=== PATIENT | male | born 1955 ===

== ENCOUNTER 2019-12-11 15:13 | Inpatient (IN) | payer MEDICARE, OTHER ==
[~2019-12-11] VITALS: Ht 182.9 cm; Wt 73.6 kg
--- NOTE | 2019-12-11 15:44 | NUR ---
[facility] FROM [facility], [facility], TO ER BED 6. AAOX0. NON VERBAL. NOT IN RESP DISTRESS. BED BOUND, PT WAS BROUGHT IN FOR FAILURE TO THRIVE - POOR ORAL INTAKE. MD WAS AT THE BEDSIDE FOR EVAL. ORDERS RECEIVED, NOTED AND RECEIVED. EKG AT BEDSIDE
[2019-12-11] MEDS ORDERED: ACET-868 PO (15:48)
[2019-12-11] MEDS ORDERED: DONE10TA44 PO (15:48)
[2019-12-11] MEDS ORDERED: PROP10TA68 PO (15:48)
[2019-12-11] MEDS ORDERED: NA P133E RC (15:48)
[2019-12-11] MEDS ORDERED: MEMA10TA56 PO (15:48)
[2019-12-11] MEDS ORDERED: BENA10TA74 PO (15:48)
[2019-12-11] MEDS ORDERED: MAGN400O6 PO (15:48)
[2019-12-11] MEDS ORDERED: ATOR10TA PO (15:48)
[2019-12-11] MEDS ORDERED: BISA10SU11 RC (15:48)
[2019-12-11] MEDS ORDERED: ACET-2605 PO (15:48)
--- NOTE | 2019-12-11 15:49 | NUR ---
COVID POSITIVE DONE ON NOVEMBER 13 RESULT 11/17/19, RETESTED ON NOVEMBER 29 WIT NEGATIVE RESULT ON 12/03/19
[2019-12-11] MEDS ORDERED: IV NS 0.9% 500 ML IV ONE (16:00)
--- NOTE | 2019-12-11 16:20 | NUR ---
URINE COLLECTED BY IN & OUT PER MD ORDERED. NOTED AND CARRIED OUT. STRICT STERILE TECHNIQUE OBSERVED DURING PROCEDURE.
[2019-12-11 16:34] LABS: ALANINE AMINOTRANSFERASE 31 U/L (12-78); ALBUMIN 3.6 g/dL (3.4-5.0); ALKALINE PHOSPHATASE 117 U/L (46-116); ASPARTATE AMINOTRANSFERASE 22 U/L (15-37); B-TYPE NATRIURETIC PEPTIDE 44 PG/ML (0-125); BASOPHILS # (AUTO) 0.1 /CMM (0.0-0.2); BASOPHILS % (AUTO) 0.7 % (0.0-2.0); CALCIUM, SERUM 10.4 mg/dL (8.5-10.1); CARBON DIOXIDE 29 mmol/L (21-32); CREATININE 3.3 mg/dL (0.6-1.3); EOSINOPHILS % (AUTO) 2.6 % (0.0-6.0); GLUCOSE 145 mg/dL (74-106); HEMATOCRIT 54 % (39-51); LYMPHOCYTES # (AUTO) 1.9 /CMM (0.8-4.8); LYMPHOCYTES % (AUTO) 15.8 % (20.0-44.0); MEAN CORPUSCULAR HGB CONC 32 g/dl (31.0-36.0); MEAN CORPUSCULAR VOLUME 89 fL (80-96); MONOCYTES # (AUTO) 1.1 /CMM (0.1-1.30); MONOCYTES % (AUTO) 9.1 % (2.0-12.0); NEUTROPHILS # (AUTO) 8.6 /CMM (1.8-8.9); NEUTROPHILS % (AUTO) 71.8 % (43.0-81.0); PLATELET COUNT (AUTO) 240 /CMM (150-450); POTASSIUM 4.1 mmol/L (3.5-5.1); RED BLOOD CELL COUNT(AUTO) 6.08 MIL/uL (4.5-6.0); TOTAL PROTEIN, SERUM 8.8 g/dL (6.4-8.2); UREA NITROGEN, BLOOD 67 mg/dL (7-18)
[2019-12-11 16:36] LABS: CHLORIDE 131 mmol/L (98-107); SODIUM SERUM 168 mmol/L (136-145)
[2019-12-11 16:46] LABS: APPEARANCE,URINE Cloudy (CLEAR); BILIRUBIN,URINE SMALL (NEGATIVE); BLOOD, URINE Small Ery/uL (NEGATIVE); COLOR,URINE Yellow (YELLOW); KETONES,URINE Negative (NEGATIVE); LEUKOCYTE ESTERASE ,URINE Small (NEGATIVE); NITRITE, URINE Negative (NEGATIVE); PH,URINE 5.5 (5.0-8.0); PROTEIN,URINE 30 mg/dl (NEGATIVE); UGLUCOSE Negative (NEGATIVE)
[2019-12-11 16:56] LABS: CREATINE KINASE, TOTAL 635 U/L (39-308); FERRITIN 250 ng/mL (8-388)
[2019-12-11 17:02] LABS: BACTERIA,URINE Many /HPF (None Seen); SQUAMOUS EPITHELIAL CELL,UR Few /HPF (None Seen)
[2019-12-11 17:02] LABS: C-REACTIVE PROTEIN 1.9 mg/dL (0.0-0.9)
[2019-12-11 17:03] LABS: URINE AMORPHOUS URATE Moderate /HPF (None Seen)
[2019-12-11] MEDS ORDERED: CEFTRIAXONE 2 G in IV D5W 100 ML IV ONE (17:30)
[2019-12-11] MEDS ORDERED: CEFTRIAXONE 1GM BAG (ER ONLY) 1 GM/50 ML PIGGYBACK IV ONE (17:30)
--- NOTE | 2019-12-11 17:45 | NUR ---
DOUBLE ROCEPHINE ORDER. ONE WAS CANCELLED. WANTED 2GM ROCEPHIN VIA IV. NOTED AND CARRIED OUT.
[2019-12-11 19:49] LABS: BILIRUBIN,DIRECT 0.1 mg/dL (0.0-0.2)
--- NOTE | 2019-12-11 20:17 | NUR ---
REPORT GIVEN TO JOSEPH MCGOWAN FOR SEAN
[2019-12-11 20:30] VITALS: BP 122/68
--- NOTE | 2019-12-11 20:30 | NUR ---
SUPERVISOR RIDES NOTES PT ARRIVED ON FLOOR AT 2029. PT IS NONVERBAL, WITH INVOLUNTARY JERKING MOVEMENTS. BREATHING EVEN AND UNLABORED ON 2L NC. SHOWS NO SIGNS OF ACUTE RESPIRATORY DISTRESS. NO ACUTE PAIN. IV ON L AC 20G ITS CLEAN DRY AND INTACT. SHOWS NO SIGNS OF INFILTRATION NO REDNESS. BELONGINGS CHECKLIST COMPLETE. SKIN ASSESSMENT COMPLETED. SAFETY PRECAUTIONS IN PLACE. BED IN LOWEST POSITION, LOCKED, AND CALL LIGHT KEPT WITHIN REACH. WILL CONTINUE TO MONITOR.
--- NOTE | 2019-12-11 20:37 | NUR ---
PT TRANSPORTED TO UNIT ON GURNEY WITH EMT AND RN AT BEDSIDE W/ ACLS PROTOCOL. NAD NOTED DURING TRANSPORT.
--- NOTE | 2019-12-11 20:50 | NUR ---
CORE MAN NOTES UNABLE TO DO COMPLETED INITIAL INTERVIEW, PT IS UNABLE TO RESPONDS TO QUESTIONS.
--- NOTE | 2019-12-11 22:00 | NUR ---
MATTRESS AND FOUNDATION SEWER NOTES SPOKE TO DIRECTOR SALES SUPPORT FOR DR. HONEYCUTT. RECEIVED ADMITTING ORDERS AND TO HOLD ALL MEDS UNTIL SWALLOW EVAL PER MD. WILL CONTINUE TO MONITOR.
[2019-12-11] MEDS: IV D5/0.45 NACL 1,000 ML IV PRN (22:12)
[2019-12-12] VITALS: BP 121/70
[2019-12-12 04:00] VITALS: BP 103/68
--- NOTE | 2019-12-12 06:43 | NUR ---
ADVERTISING ASSOCIATE NOTES PT IS NONVERBAL, WITH INVOLUNTARY JERKING MOVEMENTS. BREATHING EVEN AND UNLABORED ON 2L NC. SHOWS NO SIGNS OF ACUTE RESPIRATORY DISTRESS. NO ACUTE PAIN. TELE MONITOR SR/ST. IV ON L AC 20G RUNNING NS AT 75MLHR. ITS CLEAN DRY AND INTACT. SHOWS NO SIGNS OF INFILTRATION NO REDNESS. ALL DUE MEDICATIONS GIVEN. SAFETY PRECAUTIONS IN PLACE. BED IN LOWEST POSITION, LOCKED, AND CALL LIGHT KEPT WITHIN REACH. WILL ENDORSE TO ONCOMING NURSE.
--- NOTE | 2019-12-12 07:14 | NUR ---
TURBINE ENGINEER NOTES CALLED CENTRAL SUPPLY FOR DVT PUMP. WILL ENDORSE TO ONCOMING NURSE.
--- NOTE | 2019-12-12 07:30 | NUR ---
MAINFRAME PROGRAMMER OPENING NOTES PT IS NONVERBAL, WITH OCCASIONAL INVOLUNTARY JERKING MOVEMENTS. BREATHING EVEN AND UNLABORED . SHOWS NO SIGNS OF ACUTE RESPIRATORY DISTRESS. NO ACUTE PAIN. TELE MONITOR SR/ST. IV ON L AC #20G RUNNING D5 1/2 NS AT 75 ML/HR. ITS CLEAN DRY AND INTACT. SHOWS NO SIGNS OF INFILTRATION NO REDNESS. REMAIN NPO SWALLOW TEST SCHEDULE. SAFETY PRECAUTIONS IN PLACE. BED IN LOWEST POSITION, LOCKED, AND CALL LIGHT KEPT WITHIN REACH. WILL CONTINUE TO MONITOR.
[2019-12-12 08:00] VITALS: BP 138/94
[2019-12-12 09:03] LABS: ALBUMIN 3.3 g/dL (3.4-5.0); BILIRUBIN,TOTAL 0.7 mg/dL (0.2-1.0); CALCIUM, SERUM 9.6 mg/dL (8.5-10.1); CREATININE 2.8 mg/dL (0.6-1.3); POTASSIUM 3.9 mmol/L (3.5-5.1); TOTAL PROTEIN, SERUM 8.2 g/dL (6.4-8.2)
[2019-12-12 09:25] LABS: THYROID STIMULATING HORMONE 0.534 uIU/mL (0.358-3.74)
--- NOTE | 2019-12-12 11:15 | NUR ---
TELE/RN NOTE RECEIVED THE PATIENT WITH BEDSIDE REPORT FROM JOSEPH ALLEN. THE PATIENT IS BROUGHT TO THE UNIT ON BED.
--- NOTE | 2019-12-12 11:16 | NUR ---
RN NOTE THE PATIENT IS NOT ALERT OR ORIENTED. MAKES SOUNDS. RECEIVING OXYGEN AT 2L/MIN VIA NASAL CANNULA. NO MANIFESTATION OF ANY DISTRESS NOTED. LAC G 20 PATENT AND SALINE LOCKED. BED LOW AND LOCKED. SIDE RAILS UP X3. CALL LIGHT WITHIN REACH. WILL CONTINUE TO MONITOR.
[2019-12-12] MEDS: IV D5/0.45 NACL 1,000 ML IV PRN (11:37)
[2019-12-12 12:00] VITALS: BP 116/62
--- NOTE | 2019-12-12 12:07 | NUR ---
TELE/RN NOTE DR HONEYCUTT IS MADE AWARE OF THE PATIENT ABNORMAL LAB RESULTS AND RECEIVED AN ORDER TO DISCONTINUE D5 1/2 NS IV FLUID AND INSTEAD START D5W AT 75ML/HR PRN. THE ORDERS NOTED AND CARRIED OUT. ALSO, DR HONEYCUTT IS MADE AWARE THAT THE PATIENT FAILED SWALLOW EVAL AND PER MD NPO ORDER PLACED. Addendum: 12/12/19 at 1210 by DYLAN ALMONTE RN MS/RN NOTE DR HONEYCUTT IS MADE AWARE TO DO MED RECON.
[2019-12-12] MEDS: IV D5W 1,000 ML IV PRN (12:34)
[2019-12-12] MEDS ORDERED: NA PHOS,M-B/NA PHOS,DI-BA 1 EA ENEMA RC PRN (14:00)
[2019-12-12] MEDS ORDERED: BISACODYL SUPP (10 MG) 10 MG/SUPP.RECT SUPP.RECT RC PRN (14:00)
[2019-12-12] MEDS ORDERED: MAGNESIUM HYDROXIDE 30 ML UDC PO PRN (14:00)
[2019-12-12] MEDS ORDERED: ACETAMINOPHEN ES 500 MG TABLET PO PRN (14:30)
--- NOTE | 2019-12-12 15:55 | NUR ---
TELE/RN NOTE STILL WAITING FOR THE PHARMACY TO DELIVER ROCEPHIN DUE AT 1500. FOLLOW UP CALLS ARE MADE. WILL ADMINISTER THE MEDICATION SOON IT IS DELIVERED.
[2019-12-12] MEDS: CEFTRIAXONE 1 G in IV D5W 50 ML IV SCH (15:59)
[2019-12-12 16:00] VITALS: BP 112/52
[2019-12-12] MEDS: PROPRANOLOL HCL 10 MG TABLET PO SCH (16:22)
[2019-12-12] MEDS: MEMANTINE HCL 5 MG TABLET PO SCH (16:23)
--- NOTE | 2019-12-12 16:49 | NUR ---
TELE/RN NOTE COVID19 SWAB DONE PER ORDER AND TAKEN TO THE LAB.
--- NOTE | 2019-12-12 18:20 | NUR ---
TELE/RN NOTE THE PATIENT IS IN BED. NOT ALERT OR ORIENTED. THE PATIENT IN NO APPARENT DISTRESS. OXYGEN SATURATION IN ROOM AIR IS AT 95%. THE PATIENT IS IN ROOM AIR. RESPIRATION REGULAR AND UNLABORED. NO MANIFESTATION OF DISTRESS DISTRESS NOTED. EXTERNAL TELE BOX READING IS SR 96. LAC G 20 PATENT AND D5W INFUSING AT 75ML/HR AND NO S/S INFILTRATION NOTED. BED LOW AND LOCKED. SIDE RAILS UP X3. CALL LIGHT WITHIN REACH. WILL ENDORSE TO MICROELECTRONICS TECHNICIAN.
--- NOTE | 2019-12-12 19:45 | NUR ---
RN OPENING NOTE RECEIVED PATIENT IN BED RESTING ALERT ORIENTED X0 CONFUSED NON VERBAL,BREATHING IS EVEN AND UNALBORED HE IS NPO INCLUDED MEDS DUE TO FAILED SPEECH EVAL,TOMORROW SPEECH THERAPIST WILL SEE HEM.ON 4L OXYGEN VIA NASAL CANUULA O2:94%,IV SITE IS ON LEFT AC ON D5W @75 CC/HR CONTINUE TO MONITOR.
[2019-12-12 20:00] VITALS: BP 98/47
[2019-12-12] MEDS: ATORVASTATIN 10 MG TABLET PO SCH (22:00)
[2019-12-12] MEDS: DONEPEZIL 5 MG TABLET PO SCH (22:00)
--- NOTE | 2019-12-12 22:00 | NUR ---
RN NOTE ARICEP AND LIPITOR AT 2200 NOT ADMINISTERED DUE TO PATIENT IS NPO AND FAILED SPEECH EVAL TODAY,CONTINUE TO MONITOR
[2019-12-13] VITALS: BP_SYST 104; BP_SYST 85; BP_DIAS 42; BP_DIAS 65
[2019-12-13] MEDS: IV D5W 1,000 ML IV PRN ×2 (02:27→16:55)
[2019-12-13 04:00] VITALS: BP_SYST 111; BP_DIAS 3; BP_DIAS 63
--- NOTE | 2019-12-13 06:50 | NUR ---
RN CLOSING NOTE PATIENT REMAINS THE SAME CONDITION,OPEN EYES,ALERT ORIENTED X0 CONFUSED,ON 4L OXYGEN O2 96% HEART RATE 90s REMAINS NPO,ON D5W IV 75 CC/HR IV SITE IS ON L AC INTACT,HELD ALL PO MEDS DURING 7PM TO 7 AM SHIFT,KEPT CLEAN AND DRY ALL THE TIME,WILL ENDORSE TO NEXT COMING SHIFT FOR CONTINUATION OF CARE.
[2019-12-13 08:00] VITALS: BP 115/65
[2019-12-13] MEDS: PROPRANOLOL HCL 10 MG TABLET PO SCH ×2 (09:00→17:00)
[2019-12-13] MEDS: MEMANTINE HCL 5 MG TABLET PO SCH ×2 (09:00→17:00)
--- NOTE | 2019-12-13 09:15 | NUR ---
RN NOTES PER MD HONEYCUTT DAILY CHEMISTRY ORDER.
--- NOTE | 2019-12-13 09:20 | NUR ---
SPEECH THERAPIST DID ANOTHER SWALLOW EVAL,DID NOT PASS. KEEP NPO INCLUDING MEDS.
--- NOTE | 2019-12-13 10:30 | NUR ---
RN NOTES SPEECH THERAPIST SUGGESTED NG TUBE. PER MD HONEYCUTT TO HOLD OFF NG TUBE.
[2019-12-13] MEDS ORDERED: CEFTRIAXONE 1 G in IV D5W 50 ML IV SCH (11:30)
[2019-12-13 12:00] VITALS: BP 105/57
--- NOTE | 2019-12-13 12:45 | NUR ---
RN NOTES O2 ORDER PLACED. RT AWARE FOR EVAL.
[2019-12-13] MEDS: CEFTRIAXONE 1 G in IV D5W 50 ML IV SCH (14:38)
[2019-12-13 16:00] VITALS: BP 110/55
--- NOTE | 2019-12-13 19:42 | NUR ---
RN CLOSING NOTE PATIENT IN BED SLEEPING. PATIENT REMAINS IN THE SAME CONDITION,OPEN EYES, A/O X0.ON 5L OXYGEN O2 89-95% HEART RATE 86s. REMAINS NPO,ON D5W IV 75 CC/HR IV SITE IS ON L AC INTACT,HELD ALL PO MEDS DURING 7AM TO 7 PM SHIFT,KEPT CLEAN AND DRY ALL THE TIME,WILL ENDORSE TO NEXT COMING SHIFT FOR SEAN.
--- NOTE | 2019-12-13 19:45 | NUR ---
CONVEYOR LINE BATTERY CHARGER OPENING NOTES RECEIVED PATIENT RESTING IN BED COMFORTABLY; A/OX0, NONVERBAL; BREATHING EVEN AND UNLABORED; PATIENT TOLERATING SIMPLE MASK AT 5LPM; NO SOB NOTED; PER AM SHIFT, PATIENT SPO2 FLUCTUATES; IF PATIENT CONTINUES TO FLUCTUATE, CALL RT AGAIN FOR STAT ABG ORDER; WILL CONT TO MONITOR TELE MONITOR READS SINUS RHYTHM 86BPM; IV SITE INTACT, RUNNING D5W @ 75ML/HR, TOLERATING IVF WELL; NPO STATUS MAINTAINED; SAFETY PRECAUTIONS IMPLEMENTED; ISOLATION PRECAUTIONS MAINTAINED; BED LOCKED IN LOW POSITION; SIDE RAILS X2; WILL CONT TO MONITOR
[2019-12-13 20:00] VITALS: BP 112/53
[2019-12-13] MEDS: DONEPEZIL 5 MG TABLET PO SCH (22:00)
[2019-12-13] MEDS: ATORVASTATIN 10 MG TABLET PO SCH (22:00)
--- NOTE | 2019-12-13 22:00 | NUR ---
BOOK SALESMAN NOTES SCHEDULED MEDICATIONS NON-ADMINISTERED DUE TO NPO STATUS; WILL CONT TO MONITOR
--- NOTE | 2019-12-13 22:27 | NUR ---
INDUSTRIAL HYGENIST NOTES NEW SPO2 SENSOR APPLIED; PATIENT SATTING AT 98% ON 5LPM VIA SIMPLE MASK; WILL CONT TO MONITOR
[2019-12-14] VITALS (10 sets, daily range): BP systolic 93–139; BP diastolic 44–96
--- NOTE | 2019-12-14 00:38 | NUR ---
AIRCRAFT AIR CONDITIONING MECHANIC NOTES ENDORSE SEAN TO JOSEPH BACK
[2019-12-14] MEDS: IV D5W 1,000 ML IV PRN ×2 (06:25→22:58)
--- NOTE | 2019-12-14 06:54 | NUR ---
APPARATUS CLEANER OPENING NOTES PT IN BED RESTING. A/OX0, NONVERBAL; OPENS EYES. RESPIRATIONS EVEN AND UNLABORED WITH NO S/S OF ACUTE DISTRESS OR SOB NOTED. PT NOTED WITH SIMPLE FACE MASK WITH; BREATHING EVEN AND UNLABORED; WITH O2 AT 6LPM. PER PM NURSE IF PATIENT CONTINUES TO FLUCTUATE, CALL RT AGAIN FOR STAT ABG ORDER. IV SITE INTACT, INFUSING D5W @ 75ML/HR, TOLERATING IVF WELL. PT NOTED WITH NPO STATUS. SAFETY MEASURES IN PLACE WITH BED IN LOWEST LOCKED POSITION WITH SIDE RAILS UP X2. CALL LIGHT WITHIN REACH. WILL ENDORSE TO ONCOMING NURSE FOR SEAN. Addendum: 12/14/19 at 0710 by NAZANIN CROWLEY RN CLOSING NOTES
--- NOTE | 2019-12-14 07:34 | NUR ---
RN NOTES RECEIVED PATIENT IN BED RESTING COMFORTABLY IN MODERATE HIGH BACK REST. A/OX0, NONVERBAL; OPENS EYES. RESPIRATIONS EVEN AND UNLABORED WITH NO S/S OF ACUTE DISTRESS OR SOB NOTED AT THIS TIME. ON OXYGEN 8LPM VIA SIMPLE FACE MASK. IV SITE INTACT, INFUSING D5W @ 75ML/HR, TOLERATING IVF WELL. PT NOTED WITH NPO STATUS. SAFETY MEASURES IN PLACE WITH BED IN LOWEST LOCKED POSITION WITH SIDE RAILS UP X2. CALL LIGHT WITHIN REACH. WILL CONTINUE TO MONITOR.
[2019-12-14 08:13] LABS: ALBUMIN 2.9 g/dL (3.4-5.0); BILIRUBIN,TOTAL 1.2 mg/dL (0.2-1.0); CALCIUM, SERUM 9.2 mg/dL (8.5-10.1); CREATININE 2.1 mg/dL (0.6-1.3); POTASSIUM 3.9 mmol/L (3.5-5.1); TOTAL PROTEIN, SERUM 7.6 g/dL (6.4-8.2)
[2019-12-14] MEDS: MEMANTINE HCL 5 MG TABLET PO SCH ×2 (08:49→16:45)
[2019-12-14] MEDS: PROPRANOLOL HCL 10 MG TABLET PO SCH ×2 (08:49→16:45)
--- NOTE | 2019-12-14 09:00 | NUR ---
RN NOTES SCHEDULED MEDICATIONS NON-ADMINISTERED DUE TO NPO STATUS; WILL CONT TO MONITOR
[2019-12-14] MEDS ORDERED: DEXTROSE 50%-WATER 50 ML DISP.SYRIN IV PRN (14:00)
[2019-12-14] MEDS ORDERED: GLUCERNA 1.2 1,000 ML BOTTLE GT PRN (14:30)
[2019-12-14] MEDS: CEFTRIAXONE 1 G in IV D5W 50 ML IV SCH (14:35)
--- NOTE | 2019-12-14 15:15 | NUR ---
RN NOTES INSERTED NG TUBE, CHEST-XRAY DONE, AWAITING RESULT TO CONFIRM PLACEMENT. WILL CONTINUE TO MONITOR.
--- NOTE | 2019-12-14 15:46 | NUR ---
RN NOTES CHEST XRAY- NG TUBE IS NOT IN PLACE, WILL TRY TO RE-INSERT AGAIN LATER, WILL CONTINUE TO MONITOR.
[2019-12-14 16:41] LABS: ABG BASE EXCESS -5.2 mmol/L; ABG PCO2 40.2 mmHg (35.0-45.0); ABG PH 7.324 (7.350-7.450); ABG PO2 111.1 mmHg (75.0-100.0); AaDO2 272.5 mmHg; COHb 0.4 % (0.5-1.5); MetHb 0.1 % (0.0-1.5); O2Hb 97.5 % (94.0-97.0); SITE, ABG Right Brachial; VENT MODE, BG SIMPLE MASK
[2019-12-14] MEDS: BLOOD SUGAR DIAGNOSTIC 1 EACH STRIP IN SCH (17:10)
[2019-12-14] MEDS: INSULIN REGULAR, HUMAN 100 UNIT/ML 3 ML VIAL SQ PRN (17:10)
--- NOTE | 2019-12-14 17:46 | NUR ---
RN NOTES RECEIVED HAND OFF FROM VIRI RUIZ FOR SEAN
--- NOTE | 2019-12-14 17:50 | NUR ---
ICU OPENING NOTES RECEIVED PATIENT RESTING IN BED COMFORTABLY. 10L O2 FLOWING VIA FACE MASK, SATING 100%. PT CONNECTED TO BEDSIDE MONITOR. SAFETY MEASURES HAVE BEEN IMPLEMENTED, CALL LIGHT IS WITHIN REACH, BED IS IN LOWEST AND LOCKED POSITION, SIDE RAILS UP X2, WILL CONTINUE TO MONITOR FOR ANY CHANGES.
--- NOTE | 2019-12-14 19:08 | NUR ---
ICU OF RN CLOSING PT IS RESTING IN BED COMFORTABLY AT THIS TIME. PT IS RECEIVING 10L OXYGEN VIA SIMPLE FACE MASK. SAFETY MEASURES HAVE BEEN IMPLEMENTED, CALL LIGHT IS WITHIN REACH, BED IS IN LOWEST AND LOCKED POSITION, SIDE RAILS UP X2, PT HAS BEEN ENDORSED TO NIGHTSHIFT RN FOR SEAN.
--- NOTE | 2019-12-14 20:00 | NUR ---
MVA REACTOR OPERATOR NOTES PT IS RESTING IN BED .A/O X0 NON VERBAL UNABLE TO MAKE NEEDS KNOWN .ON 10L OXYGEN VIA SIMPLE FACE MASK.ON MONITOR ST -109, NO SOB NO DISTRESS NOTED SATING 89-95% V/S STABLE AFEBRILE ,PTS ON IVF OF D5W AT 75CC/HR INFUSING WELL .PTS IS NPO STATUS ALL DUE PO MEDICATION NON ADMINISTERED . SAFETY MEASURES HAVE BEEN IMPLEMENTED, CALL LIGHT IS WITHIN REACH, BED IS IN LOWEST AND LOCKED POSITION, SIDE RAILS UP X2, PER ENDORSEMENT FROM CHARLIE RUIZ PTS FOR INTERVENTIONAL RADIOLOGY TO INSERT NG TUBE ON MONDAY RN TO CALL ON MONDAY TO RADIOLOGY TEL#[phone]. WILL CONTINUE TO MONITOR PTS. PTS AWAITING COVID RESULT.
[2019-12-14] MEDS: DONEPEZIL 5 MG TABLET PO SCH (21:36)
[2019-12-14] MEDS: ATORVASTATIN 10 MG TABLET PO SCH (21:36)
--- NOTE | 2019-12-14 23:45 | NUR ---
MODEL AND DYE PERSON NOTES RECEIVED CALL FROM LAB COVID RESULT - POSITIVE , YUMIKO RUIZ AND NSG SUPERVISOR RESIDENTIAL EARNEST MADE AWARE.
[2019-12-15] VITALS (26 sets, daily range): BP systolic 80–152; BP diastolic 47–78
--- NOTE | 2019-12-15 | NUR ---
silviculture teacher notes blood sugar for 12mn is179 mg/dl 3 units of regular insulin per sliding scale , will check blood sugar again at 6am.
[2019-12-15] MEDS: INSULIN REGULAR, HUMAN 100 UNIT/ML 3 ML VIAL SQ PRN ×4 (00:18→18:21)
[2019-12-15] MEDS: BLOOD SUGAR DIAGNOSTIC 1 EACH STRIP IN SCH ×4 (00:18→18:18)
--- NOTE | 2019-12-15 03:46 | NUR ---
agriculture intern notes morning care rendered , remains on 10 liters of 02 via simple mask,will continue to monitor pts. sating 100%
--- NOTE | 2019-12-15 05:38 | NUR ---
agricultural equipment test engineer notes blood sugar for 6am 1s 177 mg/dl 3 units of regular insulin given per sliding scale. pts continue on d5w at 75cc/hr,o2 sat of 95%,will endorse to rn day shift for continuity of care.
[2019-12-15 07:17] LABS: ALBUMIN 2.9 g/dL (3.4-5.0); BILIRUBIN,TOTAL 0.9 mg/dL (0.2-1.0); CALCIUM, SERUM 9.3 mg/dL (8.5-10.1); CREATININE 1.9 mg/dL (0.6-1.3); POTASSIUM 3.9 mmol/L (3.5-5.1)
--- NOTE | 2019-12-15 08:30 | NUR ---
SHILPI RN OPENING NOTES RECEIVED PT IN BED. PT IS OBTUNDENT.ALERT AND ORIENTED X1. PT IS ON OXYGEN MASK FOR 10 L.VS WNL. PT IS NPO. WAITING FOR NG PLACEMENT ON MONDAY TO START TUBE FEEDING FOR GLUCERNA. WILL NOTIFY SECURITY LEAD NURSE TO FOLLOW UP CALL FOR NG TUBE PLACEMENT.LEFT AC FLUSHING WELL AND INTACT HAS RUNNING DW5% 75 ML/HR.BED IN LOWEST POSITION. CALL LIGHT WITHIN REACH.SAFETY MEASUREMENT ARE IMPLEMENTED. WILL CONTINUE TOO MONITOR.
[2019-12-15] MEDS: PROPRANOLOL HCL 10 MG TABLET PO SCH ×2 (08:48→17:00)
[2019-12-15] MEDS: MEMANTINE HCL 5 MG TABLET PO SCH ×2 (08:49→17:00)
--- NOTE | 2019-12-15 09:30 | NUR ---
SHILPI RN NOTES PT TEM IS RUNNING 99.4. PT IS ON NPO. IV RUNNING OF D5W OF 75 ML/HR.PUT ICE PACK AXILIARY. WILL RECHECK IN 20 MIN
[2019-12-15] MEDS: IV D5W 1,000 ML IV PRN (09:59)
--- NOTE | 2019-12-15 11:00 | NUR ---
SHILPI RN NOTES RE -CHECKED TEM IS 98.6. TEM DROPPED
--- NOTE | 2019-12-15 11:31 | NUR ---
SHILPI RN NOTES TEM IS 98.2
--- NOTE | 2019-12-15 11:55 | NUR ---
SHILPI RN NOTES WATCHING PT'S BP IT WENT FROM 80/47 TO 98/60
--- NOTE | 2019-12-15 12:10 | NUR ---
SHILPI RN NOTES PT VS WNL
[2019-12-15] MEDS: CEFTRIAXONE 1 G in IV D5W 50 ML IV SCH (15:26)
--- NOTE | 2019-12-15 18:28 | NUR ---
SHILPI RN CLOSING NOTES MO IS RESTING IN BED. PT IS NPO. PT IS ON OXYGEN MASK ON 10 ML SAT 100% ALERT AND ORIENTED X1, OBTUNDENT. NG TUBE WILL BE STARTED BY INTERVENTIONAL RADIOLOGY MONDAY MORNING [phone].PT CONDOM DIAZ IS CHANGED TO APPROPRIATE SIZE. BED IS IN THE LOWEST POSITIONED.CALL LIGHT WITHIN REACH. WILL ENDORSE TO SENIOR DESIGN ENGINEERING SPECIALIST
--- NOTE | 2019-12-15 19:30 | NUR ---
ICU OVERFLOW RN NOTES, PATIENT IN BED ON OXYGEN MASK ON 10 ML SAT 96% AT THIS TIME, NO SOB/ACUTE DISTRESS NOTED AT THIS TIME, DOESN'T FOLLOW COMMANDS, OBTUNDENT, ENDORSED THAT NG TUBE WILL BE STARTED BY INTERVENTIONAL RADIOLOGY TOMORROW MORNING, [phone], WILL FOLLOW UP IN AM, LEFT AC IV ACCESS PATENT AND INTACT AND IVF INFUSING ORDERED, PATIENT TOLERATED WELL, BED LOCKED AND LOWEST POSITION, CALL LIGHT WITHIN REACH, WILL CONTINUE TO MONITOR CLOSELY.
[2019-12-15] MEDS: DONEPEZIL 5 MG TABLET PO SCH (21:06)
[2019-12-15] MEDS: ATORVASTATIN 10 MG TABLET PO SCH (21:06)
--- NOTE | 2019-12-15 21:07 | NUR ---
ICU OVERFLOW RN NOTES, NIGHT PO MEDICATIONS NON ADMINISTERED JEFRY TO PATIENT NPO STATUS, WILL F/U IN AM WITH INTERVENTIONAL RADIOLOGY FOR NG PLACEMENT.
[2019-12-16] VITALS (23 sets, daily range): BP systolic 94–149; BP diastolic 38–99
[2019-12-16] MEDS: INSULIN REGULAR, HUMAN 100 UNIT/ML 3 ML VIAL SQ PRN ×4 (00:04→18:09)
[2019-12-16] MEDS: IV D5W 1,000 ML IV PRN ×2 (01:45→17:41)
[2019-12-16] MEDS: BLOOD SUGAR DIAGNOSTIC 1 EACH STRIP IN SCH ×4 (06:09→18:07)
--- NOTE | 2019-12-16 06:37 | NUR ---
ICU OVERFLOW RN NOTES, PATIENT IN BED, ASLEEP BUT EASILY AROUSABLE TO TACTILE STIMULI, NO SOB/ACUTE DISTRESS NOTED AT THIS TIME, CONTINUE ON SIMPLE MASK AT 10L, IV ACCESS IN LEFT HAND, PATENT AND INTACT, IVF INFUSING ORDERED, PATIENT TOLERATED WELL, NO SIGNIFICANT CHANGE IN CONDITION DURING THE NIGHT, BED LOCKED AND LOWEST POSITION, S/R OF BED ORDERED, CALL LIGHT W/I REACH, NG TUBE TO BE PLACED TODAY BY INTERVENTION RADIOLOGY, WILL ENDORSE CONTINUITY OF CARE TO ONCOMING NURSE.
--- NOTE | 2019-12-16 07:45 | NUR ---
RN OPENING NOTE: Received patient in bed and obtunded. Patient opens eyes and responds to tactile stimulus but non verbal and unable to track. Tele monitor showing sinus tachycardia @ 102 bpm, on cont o2 via simple face mask @ 10lpm with saturation noted at 100%. No SOB and not in resp. distress. Isolation precaution in place for covid-19. No pain noted on patient. IV site clean, dry, patent and intact with infusion of 75mls/hr being tolerated well. No pain noted on patient. Call light in reach. Bed locked, low and at semi-zapata's position. Side rails up x3. Safety ensured and observed. Will continue to monitor.
[2019-12-16] MEDS: PROPRANOLOL HCL 10 MG TABLET PO SCH ×2 (09:00→18:00)
[2019-12-16] MEDS: MEMANTINE HCL 5 MG TABLET PO SCH ×2 (09:00→18:00)
--- NOTE | 2019-12-16 09:13 | NUR ---
rn note: Patient still without any NGTube access. awaiting placement by Radiology. Scheduled dose of medications held.
[2019-12-16] MEDS: DEXAMETHASONE SOD PHOSPHATE 10 MG/ML VIAL IV SCH (11:25)
[2019-12-16] MEDS: HEPARIN SODIUM, PORCINE 5000 UNITS/1 ML VIAL SQ SCH ×2 (11:27→18:07)
[2019-12-16 12:31] LABS: C-REACTIVE PROTEIN 25.9 mg/dL (0.0-0.9)
[2019-12-16] MEDS: CEFTRIAXONE 1 G in IV D5W 50 ML IV SCH (14:00)
--- NOTE | 2019-12-16 17:00 | NUR ---
RN NOTE: NGT insertion done at bedside per MD orders. Chest Xray done and awaiting results. Dr. Lee informed and aware.
--- NOTE | 2019-12-16 18:00 | NUR ---
RN NOTE: CXR resulted. Advancement recommendend. NGTube advanced as adviced, CXR ordered for confirmation. 1700 due medications held.
--- NOTE | 2019-12-16 18:59 | NUR ---
RN CLOSING NOTE: Patient was seen by Dr. Lee earlier on shift via telemedicine. Dr. Guerrier made rounds earlier on shift. Patient remains in bed and obtunded. Patient opens eyes and responds to tactile stimulus but non verbal and unable to track. Tele monitor showing sinus rhythm @ 60s. on cont o2 via NC @ 6lpm with saturation noted at 94%. No SOB and not in resp. distress. Isolation precaution in place for covid-19. No pain noted on patient. IV sites clean, dry, patent and intact with infusion of 75mls/hr being tolerated well. NGTube inserted on the left nare awaiting confirmation of placement, tube feeding to start after per doctor's orders. No pain noted on patient. Call light in reach. Bed locked, low and at semi-zapata's position. Side rails up x3. Safety ensured and observed. Due applicable medications given. Treatment given as ordered. Endorsed to oncoming shift for SEAN.
[2019-12-16] MEDS ORDERED: GLUCERNA 1.2 1,000 ML BOTTLE NG PRN (19:00)
--- NOTE | 2019-12-16 19:35 | NUR ---
ICU OVERFLOW RN NOTES, PATIENT IN BED RESTING COMFORTABLE, WITH EYES CLOSED, ON NC AT 6L WITH ON OXYGEN SAT 95% AT THIS TIME, NO SOB/ACUTE DISTRESS NOTED AT THIS TIME, OBTUNDENT, AWAITING FOR XRAY TO CONFIRM PLACEMENT OF NG, PER NURSE INTERVENTIONAL RADIOLOGY STATED THAT THEY DON' T PLACE NG TUBES, SO HE DID, WILL FOLLOW UP, MIGUELANGEL MIDLINE IN PLACED WELL LEFT HAND BOTH PATENT AND INTACT, NO ABNORMALITY AT SITE, PATENT AND INTACT AND IVF INFUSING ORDERED, PATIENT TOLERATED WELL, BED LOCKED AND LOWEST POSITION, CALL LIGHT WITHIN REACH, WILL CONTINUE TO MONITOR CLOSELY.
--- NOTE | 2019-12-16 20:00 | NUR ---
ICU OVERFLOW RN NOTES, RECEIVED X-RAYS RESULTS FOR NG PLACEMENT WHICH REVEALED NG TUBE NOT IN PLACED, AND RECOMMENDED TO REMOVE THE NG, REMOVED RECOMMENDED, NO DISTRESS NOTED IN PATIENT, WILL FOLLOW UP WITH MD.
--- NOTE | 2019-12-16 20:15 | NUR ---
ICU OVERFLOW RN NOTES, CALLED INTERVENTIONAL RADIOLOGY AGAIN TO CONFIRM EITHER THEY CAN OR CANNOT PLACED NG TUBE, IN EFFECT THEY REPLIED THAT THEY DON'T DO THIS PROCEDURE.
--- NOTE | 2019-12-16 20:20 | NUR ---
ICU OVERFLOW RN NOTES, INFORMED DR HONEYCUTT THAT, AGAIN PER X-RAYS NG TUBE IS NOT IN PLACED AND RECOMMENDED TO REMOVE IT, PER MD IF WE CAN TRY ONE MORE TIME, IF NOT SUCCESSFUL, HE WILL FOLLOW UP TOMORROW WITH GI FOR POSSIBLE ENDOSCOPY, AND NG PLACEMENT.
--- NOTE | 2019-12-16 21:00 | NUR ---
ICU OVERFLOW RN NOTES, X- RAYS DONE TO CONFIRM NG PLACEMENT, AWAITING FOR RESULTS, ALL PO MEDS ON HOLD TILL PLACEMENT CONFIRM.
--- NOTE | 2019-12-16 21:30 | NUR ---
ICU OVERFLOW RN NOTES, RECEIVED RESULTS AND RECOMMENDATION TO ADVANCE THE NG TUBE 5-10 CM, ADVANCE 10ML MORE AND CALLED X-RAY FOR CONFIRMATION OF PLACEMENT.
[2019-12-16] MEDS: DONEPEZIL 5 MG TABLET PO SCH (22:00)
[2019-12-16] MEDS: ATORVASTATIN 10 MG TABLET PO SCH (22:00)
--- NOTE | 2019-12-16 22:00 | NUR ---
ICU OVERFLOW RN NOTES, PO MEDICATIONS NOT ADMINISTERED, DUE TO PATIENT NPO AND UNSUCCESSFUL NG PLACEMENT.
--- NOTE | 2019-12-16 23:00 | NUR ---
ICU OVERFLOW RN NOTES, AFTER ADVANCE 10 CM, PER X--RAY RESULTS TO ADVANCE ANOTHER 5-7 CM, NG TUBE ADVANCED ALL THE WAY TO THE LAST NUMERATION ALREADY, PER CHARGE NURSE LUIS MIGUEL HARRISON ICU CHARGE NURSE TO JUST REMOVE THE NG AND FOLLOW UP IN AM WITH MD FOR FURTHER ORDERS.
[2019-12-17] VITALS (18 sets, daily range): BP systolic 90–199; BP diastolic 45–71
[2019-12-17] MEDS: BLOOD SUGAR DIAGNOSTIC 1 EACH STRIP IN SCH ×5 (00:35→23:51)
[2019-12-17] MEDS: INSULIN REGULAR, HUMAN 100 UNIT/ML 3 ML VIAL SQ PRN ×5 (00:37→23:54)
[2019-12-17] MEDS: HEPARIN SODIUM, PORCINE 5000 UNITS/1 ML VIAL SQ SCH ×3 (01:26→18:07)
[2019-12-17 06:25] LABS: BASOPHILS % (AUTO) 0.4 % (0.0-2.0); HEMATOCRIT 38 % (39-51); HEMOGLOBIN 12.1 g/dL (13.5-17.5); LYMPHOCYTES # (AUTO) 0.6 /CMM (0.8-4.8); LYMPHOCYTES % (AUTO) 7.2 % (20.0-44.0); MEAN CORPUSCULAR HGB CONC 32 g/dl (31.0-36.0); MEAN CORPUSCULAR VOLUME 88 fL (80-96); MONOCYTES # (AUTO) 0.4 /CMM (0.1-1.30); MONOCYTES % (AUTO) 5.4 % (2.0-12.0); NEUTROPHILS # (AUTO) 6.8 /CMM (1.8-8.9); PLATELET COUNT (AUTO) 119 /CMM (150-450); RED BLOOD CELL COUNT(AUTO) 4.36 MIL/uL (4.5-6.0); WHITE BLOOD COUNT (AUTO) 7.8 K/uL (4.3-11.0)
--- NOTE | 2019-12-17 06:30 | NUR ---
ICU OVERFLOW RN NOTES, PATIENT IN BED ASLEEP BUT AROUSABLE TO TACTILE STIMULI, CONTINUE ON NC AT 6L WITH ON OXYGEN ZXQ21-107% MOSTLY THE ENTIRE SHIFT, NO SOB/ACUTE DISTRESS NOTED AT THIS TIME, NO SUCCESS FOR NG PLACEMENT, DR HONEYCUTT AWARE, HE'LL FOLLOW UP TODAY, RIGHT AC MIDLINE AND LEFT HAND PIV ACCESS BOTH PATENT AND INTACT, NO ABNORMALITY AT SITE, PATENT AND INTACT AND IVF INFUSING ORDERED, PATIENT TOLERATED WELL, CONTINUE NPO, ON ISOLATION PRECAUTIONS FOR POSITIVE COVID 19, BED LOCKED AND LOWEST POSITION, 3 S/R OF BED UP, CALL LIGHT WITHIN REACH, WILL ENDORSE CONTINUITY OF CARE TO ONCOMING NURSE.
[2019-12-17 06:44] LABS: CALCIUM, SERUM 8.8 mg/dL (8.5-10.1); CREATININE 1.6 mg/dL (0.6-1.3); POTASSIUM 3.6 mmol/L (3.5-5.1)
--- NOTE | 2019-12-17 07:22 | NUR ---
YARD ATTENDANT OPENING RECEIVED PATIENT RESTING IN BED COMFORTABLY. PT IS AOX0, NON-VERBAL, AND ON STRICT BED REST. HE IS ON 6L OF O2 VIA NC, TOLERATING WELL, 97 O2 SAT. TELE MONITOR SHOWING NSR WITH HR IN THE 80s. SKIN IS INTACT. CONDOM CATH IS PATENT AND INTACT, DRAINING CLEAR AND YELLOW URINE BY GRAVITY. IV SITE ON RAC MIDLINE AND L HAND 22 G IS PATENT AND INTACT, INFUSING D5 AT 75 ML.HR. PT CONNECTED TO BEDSIDE MONITOR FOR ICU OF. CONTACT AND DROPLET ISO HAVE BEEN IMPLEMENTED AND ENFORCED FOR COVID-19. SAFETY MEASURES HAVE BEEN IMPLEMENTED, CALL LIGHT IS WITHIN REACH, BED IS IN LOWEST AND LOCKED POSITION, SIDE RAILS UP X2, WILL CONTINUE TO MONITOR FOR ANY CHANGES.
[2019-12-17] MEDS: IV D5W 1,000 ML IV PRN ×2 (07:49→21:58)
[2019-12-17] MEDS: DEXAMETHASONE SOD PHOSPHATE 10 MG/ML VIAL IV SCH (08:16)
[2019-12-17] MEDS: PROPRANOLOL HCL 10 MG TABLET PO SCH ×2 (08:25→16:34)
[2019-12-17] MEDS: MEMANTINE HCL 5 MG TABLET PO SCH ×2 (08:26→16:35)
--- NOTE | 2019-12-17 08:39 | NUR ---
RN NOTES PT O2 SATURATION DROPPED TO MID 80'S WITH AUDIBLE GURGLING FROM SECRETIONS. DEEP SUCTIONED PT WITH YANKEUR, PT O2 SAT NOW BETWEEN 90-95%. PT IS NOW MORE COMFORTABLE, WILL CONTINUE TO MONITOR FOR ANY CHANGES.
[2019-12-17] MEDS ORDERED: Z GUARD REMEDY 2 OZ OINT TP ONE (09:00)
[2019-12-17] MEDS ORDERED: Z GUARD REMEDY 2 OZ OINT TP PRN (09:00)
--- NOTE | 2019-12-17 09:01 | NUR ---
WOUND CARE CONSULT: REVIEWED CHART AND NURSING DOCUMENTATION. CURRENT JOSE SCORE IS 11. DISCUSSED SKIN PROTECTION RECOMMENDATIONS WITH NURSING STAFF. PT IS ON CORUNNA ISOFLEX LOW AIRLOSS BED. WILL SEE PRN. IN AGREEMENT WITH PLAN OF CARE.
--- NOTE | 2019-12-17 11:24 | NUR ---
RN NOTES DR. HONEYCUTT HAS FACETIMED WITH THE PT, CONTINUE POC. NO NEW ORDERS AT THIS TIME, WILL CONTINUE TO MONITOR FOR ANY CHANGES
--- NOTE | 2019-12-17 12:21 | NUR ---
RN NOTES PT 1200 BLOOD GLUCOSE IS 156. PT HAS ORDER FOR TUBE FEEDING SLIDING SCALE Q6H HOWEVER PT IS CURRENTLY NPO, INSULIN HAS BEEN HELD. WILL CONTINUE TO MONITOR
[2019-12-17] MEDS: CEFTRIAXONE 1 G in IV D5W 50 ML IV SCH (14:22)
--- NOTE | 2019-12-17 19:14 | NUR ---
RN CLOSING NOTES PT IS RESTING IN BED COMFORTABLY, NO S/SX OF DISTRESS. NO ACUTE CHANGES OCCURRED, VITAL SIGNS ARE STABLE, PT NEEDS HAVE BEEN MET. COVID ISO HAS BEEN IMPLEMENTED AND ENFORCED. SAFETY MEASURES HAVE BEEN IMPLEMENTED, CALL LIGHT IS WITHIN REACH, BED IS IN LOWEST AND LOCKED POSITION, SIDE RIALS UP X2, PT HAS BEEN ENDORSED TO NIGHTSHIFT RN FOR SEAN.
--- NOTE | 2019-12-17 19:30 | NUR ---
DIRECTOR OF FAMILY SERVICE CENTER NOTES, PATIENT IN BED RESTING COMFORTABLE, OPENS EYES SPONTANEOUSLY, ON NC AT 6L WITH ON OXYGEN SAT > 95% AT THIS TIME, NO SOB/ACUTE DISTRESS NOTED AT THIS TIME, NO SOB/ACUTE DISTRESS NOTED AT THIS TIME, MIGUELANGEL MIDLINE IN PLACED WELL LEFT HAND BOTH PATENT AND INTACT, NO ABNORMALITY AT SITE, PATENT AND INTACT AND D5W AT 75M/HR INFUSING ORDERED, PATIENT TOLERATED WELL, PATIENT CONTINUE NPO, BED LOCKED AND LOWEST POSITION, CALL LIGHT WITHIN REACH, 2 1/2 S/S UP, WILL CONTINUE TO MONITOR CLOSELY. Addendum: 12/17/19 at 2218 by SHUKRI BARNETT RN THIS NOTE IS ENTER BY SHUKRI BARNETT RN MISTAKE I STARTED DOCUMENTING AND WAS STILL UNDER PRIOR NURSE NAME.
[2019-12-17] MEDS: INSULIN GLARGINE, 100 UNIT/ML CARTRIDGE SQ SCH (21:20)
[2019-12-17] MEDS: DONEPEZIL 5 MG TABLET PO SCH (21:20)
[2019-12-17] MEDS: ATORVASTATIN 10 MG TABLET PO SCH (21:20)
--- NOTE | 2019-12-17 22:00 | NUR ---
SHIP BOAT OR BARGE MATE NOTES PO MEDICATIONS NOT ADMINISTERED, DUE TO PATIENT NPO AT THIS TIME.
[2019-12-18] VITALS: BP 116/66
[2019-12-18] MEDS: HEPARIN SODIUM, PORCINE 5000 UNITS/1 ML VIAL SQ SCH ×3 (02:00→18:12)
--- NOTE | 2019-12-18 03:00 | NUR ---
WIRE SAW OPERATOR NOTES, PATIENT SCHEDULED FOR EGD WITH NASOGASTRIC TUBE FOR THIS MORNING, NO HEPARIN ADMINISTERED AT THIS TIME.
[2019-12-18 04:00] VITALS: BP 118/87
[2019-12-18] MEDS: BLOOD SUGAR DIAGNOSTIC 1 EACH STRIP IN SCH ×4 (05:39→23:22)
[2019-12-18] MEDS: INSULIN REGULAR, HUMAN 100 UNIT/ML 3 ML VIAL SQ PRN ×3 (05:40→23:21)
--- NOTE | 2019-12-18 06:40 | NUR ---
PRODUCTION GRAPHIC DESIGNER NOTES, PATIENT IN BED ASLEEP BUT AROUSABLE TO TACTILE STIMULI, CONTINUE ON NC AT 6L WITH ON OXYGEN SAT 94--100% THROUGHOUT THE NIGHT, NO SOB/ACUTE DISTRESS NOTED AT THIS TIME, NSR IN THR TELE MONITOR WITH HR 60S AT THIS TIME, RIGHT AC MIDLINE AND LEFT HAND PIV ACCESS BOTH PATENT AND INTACT, NO ABNORMALITY AT SITE, IVF INFUSING ORDERED, PATIENT TOLERATED WELL, CONTINUE NPO, ON ISOLATION PRECAUTIONS FOR POSITIVE COVID 19, AWAITING FOR SECOND SWAB RESULTS, SCHEDULED TO HAVE EGD WITH NG PLACEMENT TODAY, FAMILY AWARE AND INFORMED BY DR [id number], AND CONSENT GIVEN AND IN CHART, BED LOCKED AND LOWEST POSITION, 3 S/R OF BED UP, CALL LIGHT WITHIN REACH, WILL ENDORSE CONTINUITY OF CARE TO ONCOMING NURSE.
[2019-12-18 07:25] LABS: CALCIUM, SERUM 8.9 mg/dL (8.5-10.1); CREATININE 1.6 mg/dL (0.6-1.3); POTASSIUM 3.5 mmol/L (3.5-5.1)
--- NOTE | 2019-12-18 07:30 | NUR ---
RN OPENING NOTE: Received patient in bed and obtunded. Patient opens eyes and responds to tactile stimulus but only produces incomprehensible sounds and unable to track. Tele monitor showing sinus rhythm @ 70s. on cont o2 via NC @ 6lpm with saturation noted at 96%. No SOB and not in resp. distress. Isolation precaution in place for covid-19. No pain noted on patient. IV sites clean, dry, patent and intact with infusion of 75mls/hr being tolerated well. No pain noted on patient. For EGD procedure today as per schedule, consents to be verified and patient to be prepared. Patient has been NPO for the past couple of days. Call light in reach. Bed locked, low and at semi-zapata's position. Side rails up x3. Safety ensured and observed. Will continue to monitor.
[2019-12-18 08:00] VITALS: BP 102/47
[2019-12-18] MEDS: DEXAMETHASONE SOD PHOSPHATE 10 MG/ML VIAL IV SCH (08:55)
[2019-12-18] MEDS: PROPRANOLOL HCL 10 MG TABLET PO SCH ×2 (09:00→17:14)
[2019-12-18] MEDS: MEMANTINE HCL 5 MG TABLET PO SCH ×2 (09:00→17:14)
[2019-12-18] MEDS: INSULIN GLARGINE, 100 UNIT/ML CARTRIDGE SQ SCH ×2 (09:24→20:20)
--- NOTE | 2019-12-18 09:25 | NUR ---
rn note: patient was seen by Dr. Lee via tele medicine. consents obtained from Merary(sister) for upcoming procedure scheduled at 12noon. Scheduled heparin dose held d/t procedure. Patient remains NPO.
[2019-12-18] MEDS: IV D5W 1,000 ML IV PRN (09:50)
[2019-12-18 12:00] VITALS: BP 126/72
--- NOTE | 2019-12-18 13:35 | NUR ---
rn note: Patient was picked up by OR staff for procedure.
[2019-12-18] MEDS ORDERED: GLUCERNA 1.2 1,000 ML BOTTLE NG PRN (15:30)
--- NOTE | 2019-12-18 15:30 | NUR ---
RN NOTE: PAtient came back from procedure in stable condition. Successfully inserted NGT on Left nare. Informed (Sister), Lorna and Dr. Lee. Orders from Dr. Williamson and Dr. Lee noted and carried out.
[2019-12-18] MEDS: CEFTRIAXONE 1 G in IV D5W 50 ML IV SCH (15:31)
[2019-12-18 16:00] VITALS: BP_SYST 117; BP_DIAS 93; BP_DIAS 99
--- NOTE | 2019-12-18 18:14 | NUR ---
RN CLOSING NOTE: No acute changes noted on shift. Patient remains in bed and obtunded. Patient opens eyes and responds to tactile stimulus but only produces incomprehensible sounds and unable to track. Tele monitor showing sinus rhythm @ 60s. on cont o2 via face mask @ 6lpm with saturation noted at 96%. No SOB and not in resp. distress. Isolation precaution in place for covid-19. No pain noted on patient. IV sites clean, dry, patent and intact. No pain noted on patient. NGT at left nare patent and in place with Glucerna 1.2 @ 40mls/hr infusing well. Call light in reach. Bed locked, low and at semi-zapata's position. Side rails up x3. Safety ensured and observed. Due medications given. Treatment given as ordered. Will endorse to oncoming shift for SEAN.
--- NOTE | 2019-12-18 19:08 | NUR ---
RN NOTE: ENDORSED TO LUCIA Kelley RN
--- NOTE | 2019-12-18 19:38 | NUR ---
RN NOTE RECIEVED PT IN BED IN SEMI ANN'S POSITION. PT IS NON VERBAL BUT AROUSABLE TO TACTILE STIMULI. PT IS ON 6L OF O2 VIA FACE MASK. VITAL SIGNS WITHIN NORMAL LIMITS. NGT VIA LEFT NARE WITH PLACEMENT VERIFIED VIA AUSCULTATION AND ASPIRATION. CURRENTLY ON TUBE FEEDING AT 40CC/ HOUR. WILL ADVANCE RATE TOLERATED. CALL LIGHT WITHIN REACH, SAFETY MEASURES IN PLACE, WILL MONITOR PT.
[2019-12-18 20:00] VITALS: BP 100/51
[2019-12-18] MEDS: DONEPEZIL 5 MG TABLET PO SCH (21:07)
[2019-12-18] MEDS: ATORVASTATIN 10 MG TABLET PO SCH (21:07)
[2019-12-19] VITALS (7 sets, daily range): BP systolic 97–153; BP diastolic 28–96
[2019-12-19] MEDS: HEPARIN SODIUM, PORCINE 5000 UNITS/1 ML VIAL SQ SCH ×3 (01:36→17:17)
[2019-12-19] MEDS: BLOOD SUGAR DIAGNOSTIC 1 EACH STRIP IN SCH ×3 (06:03→18:01)
--- NOTE | 2019-12-19 06:24 | NUR ---
RN CLOSING NOTE NO ACUTE CHANGES OBSERVED OVERNIGHT. ABLE TO ADVANCE PT'S TUBE FEEDING (GLUCERNA 1.2) TO 55CC/HOUR TOLERATED. POSITIVE PLACEMENT OF NGT VERIFIED VIA AUSCULTATION. CALL LIGHT WITHIN REACH, SAFETY MEASURES IN PLACE, WILL ENDORSE TO MORNING RN FOR CONTINUATION OF CARE.
[2019-12-19 06:59] LABS: CALCIUM, SERUM 9.1 mg/dL (8.5-10.1); CREATININE 1.4 mg/dL (0.6-1.3); POTASSIUM 3.3 mmol/L (3.5-5.1)
--- NOTE | 2019-12-19 07:30 | NUR ---
RN OPENING NOTE RECEIVED PT IN BED. ALERT AND ORIENTED X1. PT IS ON 6 L. SAT 98-100%. PT'S TUBE FEEDING (GLUCERNA 1.2) TO 55CC/HOUR TOLERATED. POSITIVE PLACEMENT OF NGT VERIFIED VIA AUSCULTATION. CALL LIGHT WITHIN REACH, SAFETY MEASURES IN PLACE, WILL CONTINUE TO MONITOR.
[2019-12-19] MEDS: INSULIN GLARGINE, 100 UNIT/ML CARTRIDGE SQ SCH ×2 (09:00→21:41)
[2019-12-19] MEDS: PROPRANOLOL HCL 10 MG TABLET PO SCH ×2 (09:47→17:18)
[2019-12-19] MEDS: MEMANTINE HCL 5 MG TABLET PO SCH ×2 (09:47→16:22)
[2019-12-19] MEDS: DEXAMETHASONE SOD PHOSPHATE 10 MG/ML VIAL IV SCH (09:48)
[2019-12-19] MEDS ORDERED: POTASSIUM CHLORIDE 20 MEQ TAB.PRT.SR PO SCH (12:00)
[2019-12-19] MEDS: INSULIN REGULAR, HUMAN 100 UNIT/ML 3 ML VIAL SQ PRN ×2 (12:51→18:03)
[2019-12-19] MEDS: CEFTRIAXONE 1 G in IV D5W 50 ML IV SCH (15:07)
--- NOTE | 2019-12-19 18:26 | NUR ---
RN CLOSING NOTE PT IS RESTING IN BED. ALERT AND ORIENTED X1. PT IS ON 6 L. SAT 98-100%. PT'S TUBE FEEDING (GLUCERNA 1.2) TO 50CC/HOUR TOLERATED. POSITIVE PLACEMENT OF NGT VERIFIED VIA AUSCULTATION. CALL LIGHT WITHIN REACH, SAFETY MEASURES IN PLACE. ALL MEDS WERE GIVEN. WILL ENDORSE TO [facility] FOR SEAN.
--- NOTE | 2019-12-19 19:30 | NUR ---
RN OPENING NOTES client is resting in bed, A/O x1, VS wnl, client is on external telemonitor. SR, HR 89. The client is nonverbal. Client has no s/s of distress, saturating at 98 - 100% on 6L simple face mask. Client has no s/s of pain. Receiving 50cc /hr of glucerna. At this moment all needs have been rendered will continue to monitor the client. All safety mechanisms in place, Side rails x2, bed locked in lowest position, and call light within reach.
[2019-12-19] MEDS: ATORVASTATIN 10 MG TABLET PO SCH (22:35)
[2019-12-19] MEDS: DONEPEZIL 5 MG TABLET PO SCH (22:35)
[2019-12-20] VITALS: BP 113/63
[2019-12-20] MEDS: BLOOD SUGAR DIAGNOSTIC 1 EACH STRIP IN SCH ×5 (01:45→23:24)
[2019-12-20] MEDS: HEPARIN SODIUM, PORCINE 5000 UNITS/1 ML VIAL SQ SCH ×3 (02:26→17:09)
[2019-12-20 04:00] VITALS: BP 130/80
--- NOTE | 2019-12-20 06:16 | NUR ---
RN CLOSING NOTES The client remains stable with no change of condition. The client has no S/S of distress. CLient remains on 6L simple Face mask, sat 99%. The client remains nonverbal. Reduced the tube feeding to 30cc/hr due to a significant amount of secretion from productive cough, no decrease in saturation. All needs rendered at this time. SAfety mechanisms in place. Will endorse the incoming shift for SEAN.
[2019-12-20 06:46] LABS: CALCIUM, SERUM 9.1 mg/dL (8.5-10.1); CREATININE 1.4 mg/dL (0.6-1.3); POTASSIUM 3.5 mmol/L (3.5-5.1)
--- NOTE | 2019-12-20 07:56 | NUR ---
RN OPENING NOTE PT IS RESTING IN BED. ALERT AND ORIENTED X1. PT IS ON 6 L. SAT 98-100%. PT'S TUBE FEEDING (GLUCERNA 1.2) TO 50CC/HOUR TOLERATED. POSITIVE PLACEMENT OF NGT VERIFIED VIA AUSCULTATION. CALL LIGHT WITHIN REACH, SAFETY MEASURES IN PLACE. WILL CONTINUE TO MONITOR
--- NOTE | 2019-12-20 07:58 | NUR ---
[facility] RN NOTES PT SOUNDS VERY CONGESTED ORDER CHEST XRAY AND STOPPED NG TUBE FEEDING. PT HAS FEVER OF 99.0 .PUT ICE AND GAVE TYLENOL
[2019-12-20 08:00] VITALS: BP 123/61
[2019-12-20] MEDS: POTASSIUM CHLORIDE 20 MEQ POWDER PACKET GT SCH (08:15)
[2019-12-20] MEDS: DEXAMETHASONE SOD PHOSPHATE 10 MG/ML VIAL IV SCH (08:15)
[2019-12-20] MEDS: MEMANTINE HCL 5 MG TABLET PO SCH ×2 (08:16→16:46)
[2019-12-20] MEDS: PROPRANOLOL HCL 10 MG TABLET PO SCH ×2 (08:54→16:47)
[2019-12-20] MEDS: INSULIN GLARGINE, 100 UNIT/ML CARTRIDGE SQ SCH ×2 (09:00→20:59)
--- NOTE | 2019-12-20 09:40 | NUR ---
[facility] RN NOTES WILL CHECK TEM AGAIN
--- NOTE | 2019-12-20 09:40 | NUR ---
[facility] RN NOTES CALLED RT JERMAINE Mcgill FOR DEEP SUCTIONING. PT WELL TOLERATED. NOW LESS CONGESTED.
--- NOTE | 2019-12-20 09:41 | NUR ---
[facility] RN NOTES WILL HOLD LANTUS TILL 12 00 PM GLUCOSE CHECK
--- NOTE | 2019-12-20 10:49 | NUR ---
[facility] RN NOTES CHECKED TWICE BACK HIS TEM IS 97.7
[2019-12-20 12:00] VITALS: BP 128/78
[2019-12-20] MEDS: INSULIN REGULAR, HUMAN 100 UNIT/ML 3 ML VIAL SQ PRN ×3 (12:08→23:25)
--- NOTE | 2019-12-20 14:23 | NUR ---
[facility] RN NOTES PT IS VERY CONGESTED AGAIN. PUT NG TUBE FEEDING ON HOLD.CALL RT SPOKE WITH ERMA GOING TO SUCTION HIM.
--- NOTE | 2019-12-20 14:55 | NUR ---
[facility] RN NOTES PT IS CONGESTED AGAIN TURN OFF GLUCERMA CALLED RT JENNY SUCTIONED PT
--- NOTE | 2019-12-20 15:10 | NUR ---
[facility] RN NOTES THERE IS NO ROCEPHIN IN THE CASSETE. NON ADMIN REASON. TALKED TO RONAL
[2019-12-20 16:00] VITALS: BP 105/62
[2019-12-20] MEDS: CEFTRIAXONE 1 G in IV D5W 50 ML IV SCH (16:39)
--- NOTE | 2019-12-20 16:50 | NUR ---
[facility] RN NOTES DR HONEYCUTT CALLED AND ORDER REGLAN IV 6 HR
[2019-12-20] MEDS: METOCLOPRAMIDE HCL 10 MG/2 ML VIAL IV SCH ×2 (17:49→23:15)
--- NOTE | 2019-12-20 18:18 | NUR ---
RN CLOSING NOTE PT IS RESTING IN BED . ALERT AND ORIENTED X2. PT'S TUBE FEEDING (GLUCERNA 1.2) IS 30CC/HOUR TOLERATED. POSITIVE PLACEMENT OF NGT VERIFIED VIA AUSCULTATION. CALL LIGHT WITHIN REACH, SAFETY MEASURES IN PLACE, WILL ENDORSE TO NIGHTSHIFT RN FOR CONTINUATION OF CARE.
--- NOTE | 2019-12-20 19:15 | NUR ---
RECEIVED A PATIENT IN BED RESTING,ALERT ORIENTED X1 NONVERBAL,ON NGT FEEDING GLUCERNA 1.2 30CC/HR THE GOAL IS 70 CC/HR.IV SITE IS ON RIGHT AC INTACT PATENT,BREATHING IS NON LABORED NO SOB NOT ACUTE DISTRESS AT THIS TIME.HE IS ON 6L/MIN OXYGEN VIA MASK O2:98% HEAD OF BED ELEVATED FOR PREVENT ASPIRATION,CONTINUE TO MONITOR.
--- NOTE | 2019-12-20 19:20 | NUR ---
RN NOTE PATIENT ALSO HAS DIAZ CATHETER,IN PLACE INTACT URINE DRAINING YELLOW AND CLEAR,CONTINUE TO MONITOR.
[2019-12-20 20:00] VITALS: BP 116/69
[2019-12-20] MEDS: DONEPEZIL 5 MG TABLET PO SCH (21:22)
[2019-12-20] MEDS: ATORVASTATIN 10 MG TABLET PO SCH (21:23)
[2019-12-21] VITALS: BP 142/67
[2019-12-21] MEDS: HEPARIN SODIUM, PORCINE 5000 UNITS/1 ML VIAL SQ SCH ×3 (02:08→18:13)
[2019-12-21 04:00] VITALS: BP 130/73
[2019-12-21] MEDS: METOCLOPRAMIDE HCL 10 MG/2 ML VIAL IV SCH ×4 (06:07→23:33)
[2019-12-21] MEDS: BLOOD SUGAR DIAGNOSTIC 1 EACH STRIP IN SCH ×4 (06:16→23:46)
[2019-12-21] MEDS: INSULIN REGULAR, HUMAN 100 UNIT/ML 3 ML VIAL SQ PRN ×4 (06:17→23:49)
[2019-12-21 06:52] LABS: CALCIUM, SERUM 9.7 mg/dL (8.5-10.1); CREATININE 1.3 mg/dL (0.6-1.3); POTASSIUM 3.7 mmol/L (3.5-5.1)
--- NOTE | 2019-12-21 07:02 | NUR ---
RN CLOSING NOTE PATIENT REMAINS CONFUSED NONVERBAL,ON 9L/MIN VIA MASK NGT ON 30CC/HR GLUCERNA 1.2 THE GOAL WAS 70 CC/HR BUT PATIENT DIDNT REACH, ALL DUE MEDS GIVEN VIA NGT,KEPT CLEAN AND DRY ALL THE TIME,HEAD OF BED ELEVATED,IV SITE ON RIGHT AC INTACT PATENT,AND ON LEFT HAND INTACT PATENT,ON CONDOM CATHETER,ENDORSE NEXT COMING SHIFT FOR CONTINUATION OF CARE.
--- NOTE | 2019-12-21 07:10 | NUR ---
RN OPENING NOTE: Received patient in bed and obtunded. Patient opens eyes and responds to tactile stimulus but only produces incomprehensible sounds and unable to track. Tele monitor showing sinus rhythm @ 70s. on cont o2 via face mask @ 10lpm with saturation noted at 94%. No SOB and not in resp. distress. Isolation precaution in place for covid-19. No pain noted on patient. IV sites clean, dry, patent and intact. No pain noted on patient. NGTube on left nare patent and in place, feeding of Glucerna 1.2 @ 30mls/hr currently being infused. No pain noted. Bed locked, low and at semi-zapata's position. Side rails up x3. Safety ensured and observed. Will continue to monitor.
[2019-12-21 08:00] VITALS: BP 140/73
[2019-12-21] MEDS: PROPRANOLOL HCL 10 MG TABLET PO SCH ×3 (08:36→17:45)
[2019-12-21] MEDS: MEMANTINE HCL 5 MG TABLET PO SCH ×3 (08:36→17:45)
[2019-12-21] MEDS: DEXAMETHASONE SOD PHOSPHATE 10 MG/ML VIAL IV SCH (08:36)
[2019-12-21] MEDS: POTASSIUM CHLORIDE 20 MEQ POWDER PACKET GT SCH ×2 (08:36→09:00)
[2019-12-21] MEDS: INSULIN GLARGINE, 100 UNIT/ML CARTRIDGE SQ SCH ×2 (09:00→21:19)
--- NOTE | 2019-12-21 09:00 | NUR ---
RN NOTE: Patient pulled out NGTube. Not in distress and no adverse reactions noted. Patient noted to be moving increasingly and appears to be restless. Dr. Lee made aware of the situation. Awaiting response and orderers.
--- NOTE | 2019-12-21 09:55 | NUR ---
RN note: Dr. Lee acknowledged information and ordered D5W @ 75mls/hr. Noted and carried out
[2019-12-21] MEDS: IV D5W 1,000 ML IV SCH ×2 (10:31→23:31)
[2019-12-21 12:00] VITALS: BP 112/52
--- NOTE | 2019-12-21 15:00 | NUR ---
DR. HONEYCUTT EVALUATED PATIENT,MORE AWAKE MORE ALERT DR. HONEYCUTT HOLD NGT PLACEMENT FOR NOW AND WANTED TO TRY PUREED AND THIN LIQUIDS AND OBSERVE ASPIRATION PRECAUTION.
[2019-12-21] MEDS: CEFTRIAXONE 1 G in IV D5W 50 ML IV SCH (15:52)
[2019-12-21 16:00] VITALS: BP 115/55
--- NOTE | 2019-12-21 18:29 | NUR ---
RN CLOSING NOTE: Dr. Lee made rounds earlier and saw patient. Patient in bed and obtunded. Opens eyes and responds to tactile stimulus but only produces incomprehensible sounds.Tele monitor showing sinus rhythm with sinus tachycardia noted. On cont. humidified o2 via NC @ 6lpm with saturation noted at 99%. No SOB and not in resp. distress. Isolation precaution in place for covid-19. No pain noted on patient. IV site clean, dry, patent and intact with D5W running at 75mls/hr. No pain noted on patient. NGT placement on hold per Dr. Lee with intent to evaluate tolerance to current diet, Dinner consumed < 10%. informed and is aware. Bed locked, low and at semi-zapata's position. Side rails up x3. Safety ensured and observed. Due medications given. Treatment given as ordered. Will endorse to oncoming shift for SEAN.
--- NOTE | 2019-12-21 19:30 | NUR ---
RN OPENING NOTE RECEIVED PATIENT IN BED CONFUSED,OBTUNDED, OPEN EYES NONVERBAL, BREATHING IS EVEN AND UNLABORED NO SOB NOT ACUTE DISTRESS AT THIS TIME,ON 6L OXYGEN O2:96%, ON CONDOM CATHETER, URINE DRAINING YELLOW/CLEAR, IV SITE IS ON LEFT AC INTACT PATENT,ON D5W 75CC/HR,PATIENT IS ON PUREE DIET,KEEP COMFORTABLE, HEAD OF BED ELEVATED,LOCKED,IMPLEMENT SAFETY MEASURE,CONTINUE TO MONITOR
[2019-12-21 20:00] VITALS: BP 125/76
[2019-12-21] MEDS: ATORVASTATIN 10 MG TABLET PO SCH (21:41)
[2019-12-21] MEDS: DONEPEZIL 5 MG TABLET PO SCH (21:41)
[2019-12-22] VITALS: BP 101/65
[2019-12-22] MEDS: HEPARIN SODIUM, PORCINE 5000 UNITS/1 ML VIAL SQ SCH ×3 (01:57→18:19)
[2019-12-22 04:00] VITALS: BP 138/70
[2019-12-22] MEDS: BLOOD SUGAR DIAGNOSTIC 1 EACH STRIP IN SCH ×4 (05:40→23:38)
[2019-12-22] MEDS: METOCLOPRAMIDE HCL 10 MG/2 ML VIAL IV SCH ×4 (05:40→23:43)
[2019-12-22] MEDS: INSULIN REGULAR, HUMAN 100 UNIT/ML 3 ML VIAL SQ PRN ×4 (05:48→23:42)
--- NOTE | 2019-12-22 06:41 | NUR ---
RN CLOSING NOTE PATIENT REMAINS OBTUNDED CONFUSE NONVERBAL,BREATHING IS EVEN AND UNLABORED NO SOB NOT ACUTE DISTRESS NOTED,HE IMPROVED O2 REACHED 4L/MIN VIA NASAL CANNULA, O2:100%,HE TOOK ALL PO MEDS,TOLERATED WELL,ON D5W IV HYDRATION @ 75CC/HR,IV SITE ON RIGHT AC INTACT PATENT.KEPT CLEAN AND DRY,HEAD OF BED ELEVATED,CONDOM CATHETER IN PLACE URINE DRAINING WELL YELLOW AND CLEAR,ENDORSE TO NEXT COMING SHIFT FOR CONTINUATION OF CARE
--- NOTE | 2019-12-22 07:15 | NUR ---
RN OPENING NOTE Received patient asleep in bed appears calm and relaxed. On NC 4L tolerating well.. Patient is obtunded. Tele reading SR 70-80s. Patient has condom catheter in place. On IVF D5W @ 75ml/hr. Cont on pulmonary toileting with Decadron. Safety measures reinforced. Call light within reach. Bed locked and on lowest position. Will cont to monitor.
[2019-12-22 08:00] VITALS: BP_SYST 134; BP_SYST 143; BP_DIAS 69
[2019-12-22] MEDS: DEXAMETHASONE SOD PHOSPHATE 10 MG/ML VIAL IV SCH (08:11)
[2019-12-22] MEDS: MEMANTINE HCL 5 MG TABLET PO SCH ×2 (08:11→17:46)
[2019-12-22] MEDS: POTASSIUM CHLORIDE 20 MEQ POWDER PACKET GT SCH (08:11)
[2019-12-22] MEDS: PROPRANOLOL HCL 10 MG TABLET PO SCH ×2 (08:13→17:48)
[2019-12-22] MEDS: INSULIN GLARGINE, 100 UNIT/ML CARTRIDGE SQ SCH ×2 (08:14→21:00)
[2019-12-22 12:00] VITALS: BP 123/67
[2019-12-22] MEDS: IV D5W 1,000 ML IV SCH (12:13)
[2019-12-22] MEDS: CEFTRIAXONE 1 G in IV D5W 50 ML IV SCH (14:00)
[2019-12-22] MEDS ORDERED: KEY,NONCONTROL,TO KEEP IN PYXI 1 EA MC ONE (15:15)
--- NOTE | 2019-12-22 15:30 | NUR ---
PT NOT ON ORDNANCE KEEPER PUMP
[2019-12-22 16:00] VITALS: BP 135/73
--- NOTE | 2019-12-22 18:45 | NUR ---
RN CLOSING NOTE Patient in bed asleep calm and relaxed no signs of distress. Suctioned orally PRN. On NC 3L tolerating well. All due meds given. Vital signs maintained within normal limits. No signs of pain or discomfort. Safety measures reinforced. Call light within reach. Bed locked and on lowest position. Will endorse to sieve repairer nurse.
--- NOTE | 2019-12-22 19:30 | NUR ---
RN OPENING NOTE RECEIVED PATIENT IN BED RESTING OBTUNDED NONVERBAL ON OXYGEN 3L VIA NASAL CANNULA,O2:98% HR SINUS RHYTHM 60s,BREATHING IS EVEN AND NON LABORD,ON CONDOM CATHETER,URINE YELLOW AND CLEAR,CONTINUE PUREE DIET,HEAD OF BED ELEVATED AND LOCKED,IV SITE IS INTACT AND PATENT ON D5W 75CC/HR,CONTINUE TO MONITOR.
[2019-12-22 20:00] VITALS: BP 109/61
[2019-12-22] MEDS: DONEPEZIL 5 MG TABLET PO SCH (21:25)
[2019-12-22] MEDS: ATORVASTATIN 10 MG TABLET PO SCH (21:25)
[2019-12-23] VITALS: BP 130/57
[2019-12-23] MEDS: HEPARIN SODIUM, PORCINE 5000 UNITS/1 ML VIAL SQ SCH ×2 (02:29→09:38)
[2019-12-23] MEDS: IV D5W 1,000 ML IV SCH (02:30)
[2019-12-23 04:00] VITALS: BP 120/63
[2019-12-23] MEDS: BLOOD SUGAR DIAGNOSTIC 1 EACH STRIP IN SCH ×4 (05:57→23:28)
[2019-12-23] MEDS: INSULIN REGULAR, HUMAN 100 UNIT/ML 3 ML VIAL SQ PRN ×4 (05:59→23:23)
[2019-12-23] MEDS: METOCLOPRAMIDE HCL 10 MG/2 ML VIAL IV SCH ×4 (06:01→23:28)
--- NOTE | 2019-12-23 06:01 | NUR ---
RN NOTE CHECKED BLOOD SUGER AT 0600 IT WAS 123 INSULIN PER SLIDING SCALED NOT ADMINISTERED.
--- NOTE | 2019-12-23 06:59 | NUR ---
RN CLOSING NOTE PATIENT IN BED RESTING,OBTUNDED ON OXYGEN 6L/MIN,NO SOB NO PAIN NOTED,ALL DUE MEDS GIVEN MD ORDERED HE TOLERATED WELL,D5W IV HYDRATION RUNNING ON 75CC/HR KEPT IV SITE ON RIGHT AC MID LINE INTACT PATENT,CLEAN AND DRY ALL THE TIME,KEPT COMFORTABLE, ENDORSE NEXT COMING SHIFT FOR CONTINUATION OF CARE
--- NOTE | 2019-12-23 07:30 | NUR ---
RN OPENING NOTES Received PATIENT AT BED, OBTUNDED, NON VERBAL, ON NC WITH 6L OF O2, AND O2 SAT OF 97%, SKIN IS INTACT, MIDLINE RIGHT AC NOTED, INTACT AND PATENT, PATIENT IS ON TELE-MONITOR WITH READINGS SINUS RHYTHM 60'S, CONDOM CATH NOTED, DRAINING CLEAR, YELLOW URINE. SAFETY MEASURES IMPLEMENTED, BED IN LOWEST POSITION, HOB @ 35 DEGREE, SIDE RAILS UP, CALL LIGHT WITHIN REACH, WILL CONT TO MONITOR
[2019-12-23 08:00] VITALS: BP 121/65
[2019-12-23] MEDS: DEXAMETHASONE SOD PHOSPHATE 10 MG/ML VIAL IV SCH (08:44)
[2019-12-23] MEDS: MEMANTINE HCL 5 MG TABLET PO SCH ×2 (08:45→16:22)
[2019-12-23] MEDS: POTASSIUM CHLORIDE 20 MEQ POWDER PACKET GT SCH (08:45)
[2019-12-23] MEDS: PROPRANOLOL HCL 10 MG TABLET PO SCH (09:00)
--- NOTE | 2019-12-23 09:45 | NUR ---
Patient is unable to swallow, MD notified
[2019-12-23] MEDS: INSULIN GLARGINE, 100 UNIT/ML CARTRIDGE SQ SCH ×2 (09:56→21:19)
[2019-12-23 12:00] VITALS: BP 131/80
--- NOTE | 2019-12-23 12:40 | NUR ---
Patient went for PEG tube placement in OR, transferred via gurney
--- NOTE | 2019-12-23 14:00 | NUR ---
patient is back from OR, IV line intact, placed back on O2, saturation is 100% tolerating well
[2019-12-23] MEDS ORDERED: GLUCERNA 1.2 1,000 ML BOTTLE NG PRN (14:30)
--- NOTE | 2019-12-23 15:17 | NUR ---
Swabbed for covid-19 ag
[2019-12-23 16:02] VITALS: BP 108/57
--- NOTE | 2019-12-23 19:24 | NUR ---
RN CLOSING NOTES PATIENT REMAINS IN BED, SATURATING 100%, NO S/SX OF DISTRESS NOTED, COMFORT NEEDS ARE MET, SAFETY MEASURES IMPLEMENTED, BED IN LOWEST POSITION,MEDICATIONS ARE GIVEN, G-TUBE IN PLACE, INTACT, WILL ENDORSE TO PM SHIFT NURSE FOR SEAN
[2019-12-23] MEDS: IV D5W 1,000 ML IV PRN (19:29)
[2019-12-23] MEDS: GLUCERNA 1.2 1,000 ML BOTTLE NG PRN (19:29)
[2019-12-23 20:00] VITALS: BP_SYST 98; BP_DIAS 56; BP_DIAS 59
[2019-12-23] MEDS: DONEPEZIL 5 MG TABLET PO SCH (21:11)
[2019-12-23] MEDS: ATORVASTATIN 10 MG TABLET PO SCH (21:11)
[2019-12-24] VITALS: BP 98/54
[2019-12-24 04:00] VITALS: BP 116/52
[2019-12-24] MEDS: METOCLOPRAMIDE HCL 10 MG/2 ML VIAL IV SCH ×3 (05:26→17:06)
[2019-12-24] MEDS: INSULIN REGULAR, HUMAN 100 UNIT/ML 3 ML VIAL SQ PRN ×3 (05:45→17:08)
[2019-12-24] MEDS: BLOOD SUGAR DIAGNOSTIC 1 EACH STRIP IN SCH ×3 (05:46→17:11)
[2019-12-24 06:48] LABS: CALCIUM, SERUM 9.2 mg/dL (8.5-10.1); CREATININE 1.2 mg/dL (0.6-1.3); POTASSIUM 3.6 mmol/L (3.5-5.1)
--- NOTE | 2019-12-24 07:21 | NUR ---
TELE/RN OPENING NOTES RECEIVED PATIENT ON BED. PATIENT IS OBTUNDED. PATIENT IN NO APPARENT RESPIRATORY DISTRESS NOTED. NO SIGN AND SYMPTOM OF DISTRESS NOTED. PATIENT WITH TELE MONITOR IN PLACED SB 58. WILL CONTINUE TO MONITOR.
[2019-12-24 07:26] LABS: BASOPHILS % (AUTO) 0.2 % (0.0-2.0); EOSINOPHILS % (AUTO) 0.4 % (0.0-6.0); HEMATOCRIT 37 % (39-51); HEMOGLOBIN 11.5 g/dL (13.5-17.5); LYMPHOCYTES # (AUTO) 2.2 /CMM (0.8-4.8); LYMPHOCYTES % (AUTO) 15.6 % (20.0-44.0); MEAN CORPUSCULAR HGB CONC 31 g/dl (31.0-36.0); MEAN CORPUSCULAR VOLUME 90 fL (80-96); MONOCYTES # (AUTO) 0.7 /CMM (0.1-1.30); NEUTROPHILS # (AUTO) 11.1 /CMM (1.8-8.9); NEUTROPHILS % (AUTO) 78.8 % (43.0-81.0); PLATELET COUNT (AUTO) 181 /CMM (150-450); RED BLOOD CELL COUNT(AUTO) 4.12 MIL/uL (4.5-6.0); WHITE BLOOD COUNT (AUTO) 14.1 K/uL (4.3-11.0)
[2019-12-24 08:00] VITALS: BP 105/52
[2019-12-24] MEDS: DEXAMETHASONE SOD PHOSPHATE 10 MG/ML VIAL IV SCH (09:08)
[2019-12-24] MEDS: POTASSIUM CHLORIDE 20 MEQ POWDER PACKET GT SCH (09:08)
[2019-12-24] MEDS: MEMANTINE HCL 5 MG TABLET PO SCH ×2 (09:08→17:06)
[2019-12-24] MEDS: INSULIN GLARGINE, 100 UNIT/ML CARTRIDGE SQ SCH ×2 (09:34→22:10)
--- NOTE | 2019-12-24 09:50 | NUR ---
Patient transferred from [facility], reported by Nesha RUIZ.
--- NOTE | 2019-12-24 09:56 | NUR ---
TELE/RN NOTES PATIENT TRANSFERRED TO [facility] GIVE REPORT TO ISIDORO FOR SEAN.
--- NOTE | 2019-12-24 09:56 | NUR ---
TELE/RN NOTES PATIENT TRANSFER TO MS Darlin HERNANDEZ GIVE REPORT TO JAMES SHELLEY Addendum: 12/24/19 at 1056 by ANNY SANDERS RN ERROR
[2019-12-24] MEDS: IV D5W 1,000 ML IV PRN (10:26)
[2019-12-24 16:00] VITALS: BP 101/61
[2019-12-24 20:00] VITALS: BP 101/58
--- NOTE | 2019-12-24 20:00 | NUR ---
Ms/RN opening notes Received patient in bed, asleep, but arouses, can opens eyes, observe parkinson like tremors, on oxygen via nc at 4l, non verbal and obtunded require suction as needed on gtube, condom catheter placedm skin intactm on gtube feeding at a rate of 40 ml/hr, iv midline patent in right ac, with evp managing director shunt . to monitor and dflusg gtube every 6 hours, to monitor. Received endorsement from am rn for leticia. will monitor.
[2019-12-24] MEDS: DONEPEZIL 5 MG TABLET PO SCH (22:02)
[2019-12-24] MEDS: ATORVASTATIN 10 MG TABLET PO SCH (22:02)
[2019-12-25] MEDS: BLOOD SUGAR DIAGNOSTIC 1 EACH STRIP IN SCH ×3 (01:09→12:11)
[2019-12-25] MEDS: METOCLOPRAMIDE HCL 10 MG/2 ML VIAL IV SCH ×3 (01:13→12:11)
[2019-12-25] MEDS: GLUCERNA 1.2 1,000 ML BOTTLE NG PRN ×2 (03:08→03:19)
--- NOTE | 2019-12-25 05:00 | NUR ---
condom catheter placed.patient tolerated .
--- NOTE | 2019-12-25 06:45 | NUR ---
323-2 MS/RN NOTES PATIENT AWAKE, CAN OPENS EYES, REQUIRE EXTENSIVE ASSISTANCE TO KEEP SAFETY MEASURES IN PLACES, ON OXYGEN VIA NC AT 3 LITER, RESPIRATIONS EVEN AND UNLABORED, GTIBE PATENT AND WITH NO RESIDUAL, CONDOM CATHETER PLACED WITH 200 ML. NO BM, BED LOCKED, CALL LIGHTS WITHIN REACH. MONITORED AND TO ENDORSE TO AM RN FOR SEAN.
--- NOTE | 2019-12-25 07:30 | NUR ---
RN OPENING NOTES Patient in bed, obtunded,experiencing intermittent tremors episodes , patent is on NC @ 4L of O2, tolerating well, saturation is 92%.IV midline Right AC noted, patent and intact; condom cath is draining yellow urine by gravity, G-tube in place, intact, no residual noted, flushed, running Glucerna feeding @40cc/hr, tolerating well. Safety measures implemented,HOB elevated at 35 degree, bed in lowest position, call light within reach, will cont to monitor
[2019-12-25 08:00] VITALS: BP_SYST 132; BP_SYST 152; BP_DIAS 104; BP_DIAS 72
[2019-12-25] MEDS: MEMANTINE HCL 5 MG TABLET PO SCH ×2 (08:19→17:35)
[2019-12-25] MEDS: POTASSIUM CHLORIDE 20 MEQ POWDER PACKET GT SCH (08:19)
[2019-12-25 09:02] VITALS: BP 152/104
[2019-12-25] MEDS: INSULIN GLARGINE, 100 UNIT/ML CARTRIDGE SQ SCH (09:29)
[2019-12-25] MEDS: INSULIN REGULAR, HUMAN 100 UNIT/ML 3 ML VIAL SQ PRN (12:21)
[2019-12-25 16:00] VITALS: BP 106/57
--- NOTE | 2019-12-25 17:45 | NUR ---
Endorsed patient to JOSEPH Burch for SEAN
--- NOTE | 2019-12-25 19:15 | NUR ---
RN CLOSING NOTE I received the patient at 1745 report from Nannette RUIZ. Patient is obtunded, showing no signs of acute distress, stable on 4L NC. Patient has GTF Glucerna 1.2 running at 40mls/hour. G-tube flushed and patent with 5mls residual. IV line is clean and intact s/l flushing well. condemn cath noted with 400cc out. Skin assessed and patient skin remains intact. Per DAHIANA Bess, patient is to be discharged tomorrow. DC order already in. Bed is in lowest position, side rails x3 in upright position, fall safety and aspiration precautions enforced. Endorsed to primer and powder canning leader JOSEPH Vernon for SEAN. Addendum: 12/25/19 at 1920 by VALE MARCIAL RN I received the patient at 1700
--- NOTE | 2019-12-25 19:41 | NUR ---
MS RN OPENING NOTES PATIENT AWAKE IN BED; NONVERBAL, OBTUNDED, AND IS ABLE TO OPEN EYES ONLY. ON 2L NC. NO S/S OF ACUTE RESPIRATORY DISTRESS; BREATHING IS EVEN AND UNLABORED. NO S/S OF PAIN NOTED. MIDLINE PRESENT ON RIGHT UPPER ARM, HEP LOCKED. CONDOM CATH IN PLACE AND DRAINING WELL. GTUBE FEEDING WITH GLUCERNA RUNNING AT 40 ML/HR; TOLERATING WELL. SAFETY MEASURES IN PLACE AND PATIENT'S NEEDS MET. BED LOCKED, ALARM ON, SIDE RAILS X3, HOB ELEVATED, CALL LIGHT WITHIN REACH. WILL CONTINUE TO MONITOR.
[2019-12-25 20:00] VITALS: BP 153/72
[2019-12-25] MEDS: DONEPEZIL 5 MG TABLET PO SCH (21:56)
[2019-12-25] MEDS: ATORVASTATIN 10 MG TABLET PO SCH (21:56)
[2019-12-26] MEDS: GLUCERNA 1.2 1,000 ML BOTTLE NG PRN (04:12)
--- NOTE | 2019-12-26 06:53 | NUR ---
MS RN CLOSING NOTES PATIENT SLEEPING, NONVERBAL, OBTUNDED, AND IS ABLE TO OPEN EYES ONLY. ON 2L NC. NO S/S OF ACUTE RESPIRATORY DISTRESS AND NO PAIN NOTED. MIDLINE PRESENT ON RIGHT UPPER ARM, HEP LOCKED. CONDOM CATH REMAINS IN PLACE; 600 ML EMPTIED. GTUBE FEEDING WITH GLUCERNA RUNNING AT 40 ML/HR; TOLERATING WELL. SAFETY MEASURES IN PLACE AND PATIENT'S NEEDS MET. BED LOCKED, ALARM ON, SIDE RAILS X3, HOB ELEVATED, CALL LIGHT WITHIN REACH. WILL ENDORSE TO DAY SHIFT RN PLAN OF CARE.
--- NOTE | 2019-12-26 07:30 | NUR ---
MS/RN OPENING NOTES Patient in bed, awake, obtunded, and non-verbal. Responsive to tactile and verbal stimulation by eye opening and moaning. Breathing even and non-labored on 2L via NC. No SOB or respiratory distress noted. No cardiac distress noted. Midline access located on MIGUELANGEL, saline locked, patent and intact, and flushing well. G-tube in place, clean, patent, and intact, running Glucerna 1.2 @ 40 mls/hr. 5 cc of gastric residual noted, patient tolerating diet well. Condom catheter in place, draining clear yellow urine well. Fall precautions maintained. Will continue with current medical management. Addendum: 12/26/19 at 0801 by MELISSA WILD RN Sensation from all peripheral extremities intact.
[2019-12-26 08:00] VITALS: BP 160/80
[2019-12-26] MEDS: MEMANTINE HCL 5 MG TABLET PO SCH (08:24)
--- NOTE | 2019-12-26 16:00 | NUR ---
MS/RN NOTES Spoke with Dr. Lee regarding discharge medications, states that atorvastatin 10 mg per G-tube at bedtime, benazepril 10 mg G-tube daily, and memantine 10 mg G-tube twice a day are the "only medications he will take when he gets admitted to SNF." Endorsed to Juliana at [facility].
--- NOTE | 2019-12-26 16:45 | NUR ---
MS/RN OPENING NOTES Patient picked up by ambulance at 1645, awake, obtunded, and non-verbal. Responsive to tactile and verbal stimulation by eye opening and moaning. No s/s of pain/discomfort at this time. Breathing even and non-labored on 2L via NC. No SOB or respiratory distress noted. No cardiac distress noted. Midline access removed with catheter intact, no infiltration/bleeding/infection noted on the site. G-tube and abdominal binder in place, clean, patent, and intact. 5 cc of gastric residual noted. No new skin impairments noted. Skin is intact upon discharge. Sensation from all peripheral extremities in place. Gave report to Juliana from [facility], discussed discharge instructions and plan of care. She verbalized understanding, offered our unit number for any questions or concerns regarding patient. No belongings noted on list and signed. Patient left facility safely along with hospital documentations and discharge instructions.
--- NOTE | 2019-12-26 17:20 | NUR ---
CORRECTION: MS/WOODS OVERSEER NOTES BELOW
== END 2019-12-26 17:00 | DRG 177 ==
LOC: ER 15:24 → TELE 20:16 → TELE2 12-12 10:39 → TELE1 12-12 10:41 → ICUOV 12-14 16:51 → TELE1 12-17 15:32 → MED 12-24 09:47
PROVIDERS: ADMIT Internal Medicine; ATTEND Internal Medicine
PROC: 05H533Z Insertion of Infusion Device into Right Subclavian Vein, Percutaneous Approach (ICD-10-PCS; 2019-12-16)
PROC: B546ZZA Ultrasonography of Right Subclavian Vein, Guidance (ICD-10-PCS; 2019-12-16)
PROC: 0DH683Z Insertion of Infusion Device into Stomach, Via Natural or Artificial Opening Endoscopic (ICD-10-PCS; principal; 2019-12-18)
PROC: 0DH63UZ Insertion of Feeding Device into Stomach, Percutaneous Approach (ICD-10-PCS; 2019-12-23)
DX: U07.1 COVID-19 (principal); J12.89 Other viral pneumonia; G93.41 Metabolic encephalopathy; N17.0 Acute kidney failure with tubular necrosis; J96.90 Respiratory failure, unspecified, unspecified whether with hypoxia or hypercapnia; N39.0 Urinary tract infection, site not specified; E87.0 Hyperosmolality and hypernatremia; E46 Unspecified protein-calorie malnutrition; R64 Cachexia; G91.2 (Idiopathic) normal pressure hydrocephalus; E86.0 Dehydration; D63.8 Anemia in other chronic diseases classified elsewhere; G30.9 Alzheimer's disease, unspecified; F02.80 Dementia in other diseases classified elsewhere, unspecified severity, without behavioral disturbance, psychotic disturbance, mood disturbance, and anxiety; K44.9 Diaphragmatic hernia without obstruction or gangrene; K31.84 Gastroparesis; K29.70 Gastritis, unspecified, without bleeding; E11.43 Type 2 diabetes mellitus with diabetic autonomic (poly)neuropathy; B96.1 Klebsiella pneumoniae [K. pneumoniae] as the cause of diseases classified elsewhere; E87.6 Hypokalemia; R13.10 Dysphagia, unspecified; Z79.4 Long term (current) use of insulin; Z68.22 Body mass index [BMI] 22.0-22.9, adult; E87.8 Other disorders of electrolyte and fluid balance, not elsewhere classified; N40.1 Benign prostatic hyperplasia with lower urinary tract symptoms; Z98.2 Presence of cerebrospinal fluid drainage device; I10 Essential (primary) hypertension
CPT/HCPCS: 31720; 36415; 36600; 43246; 71045-TC; 76770-TC; 80048-TC; 80053-TC; 80061-TC; 81000-TC; 82140-TC; 82248-TC; 82550-TC; 82553; 82728-TC; 82962-TC; 83605-TC; 83615-TC; 83880; 84443-TC; 84484-TC; 85025-TC; 85378-TC; 85730-TC; 86140-TC; 86850-TC; 87040-TC; 87081-TC; 87086-TC; 87186-TC; 92526; 92611-TC; 94799-TC; A4349; G0378; J0330; J0690; J0696; J1100; J1644; J1815; J2704; J2765; J3490; J7040; J7042; J7050; J7060; J7070; U0003-CS

== ENCOUNTER 2020-12-20 23:40 | Inpatient (IN) | payer MEDICARE, OTHER ==
[~2020-12-20] VITALS: Ht 182.9 cm; Wt 65.3 kg
[~2020-12-20 23:40] MED LIST: ACET-2605 PO; ACET-868 PO; ATOR10TA PO; BISA10SU11 RC; DONE10TA44 PO; MAGN400O6 PO; MEMA10TA56 PO; NA P133E RC; PROP10TA68 PO
--- NOTE | 2020-12-20 23:48 | NUR ---
PATIENT TO ER BED 8 [facility]. PATIENT SATURATED AT MID 70's ACCORDING TO THE RA. PATIENT WAS GIVEN NONREBREATHER AT 15L WITH OXYGEN SATURATION AT LOW 90s cONNECTED TO THE CADIAC MONITOR. WILL CONTINUE TO MONITOR THE PATIENT CLOSELY.
--- NOTE | 2020-12-20 23:58 | NUR ---
Patient is given Etomidate 40mg, and Succinylcholine 150mg Per MD's order
[2020-12-21] VITALS (82 sets, daily range): BP systolic 72–136; BP diastolic 49–80
--- NOTE | 2020-12-21 | NUR ---
PATIENT IS INTUB ATED WITH SIZE 7.5 23CM@ LIP ASSIST CONTROL 18, 500TV, AND 5 PEEP
--- NOTE | 2020-12-21 00:07 | NUR ---
IWONA GREGORY AT [facility], PT VACCINATED WITH MODERNA. FIRST DOSE Jun AND SECOND DOSE Jul
[2020-12-21] MEDS ORDERED: PROPOFOL 100 ML ONE (00:15)
--- NOTE | 2020-12-21 00:26 | NUR ---
RT pt found on nrb, 15 l, sat low 80s. pt intubated per md order. ett size 7.5, intubated 23@lip. vent settings AC 16 500 100% +5. vent plugged in to red outlet. ambu bag at [facility]. lung sounds course and expiratory wheeze throughout. thick yellow secretions suctioned via ett. sputum sample collected and sent to lab. abg to be performed. will continue to monitor
[2020-12-21] MEDS ORDERED: LIDOCAINE 2% JEL UROJET 10 ML MM ONE (00:30)
[2020-12-21] MEDS ORDERED: ETOMIDATE 2 MG/ML VIAL IV ONE ×2 (00:30→09:11)
[2020-12-21] MEDS ORDERED: IV NS 0.9% 1,000 ML BAG IV ONE (00:30)
[2020-12-21] MEDS ORDERED: SUCCINYLCHOLINE CHLORIDE 20 MG/ML VIAL IV ONE (00:30)
[2020-12-21] MEDS ORDERED: VANCOMYCIN 1 GM in IV D5W 250 ML IV ONE (00:30)
[2020-12-21] MEDS ORDERED: PIPERACILLIN /TAZOBACTAM 3.375 G in IV D5W 50 ML IV ONE (00:30)
[2020-12-21] MEDS ORDERED: CEFTRIAXONE 1GM BAG (ER ONLY) 50 ML IV ONE ×2 (00:30→00:43)
[2020-12-21] MEDS ORDERED: PROPOFOL 100 ML IV ONE (00:30)
[2020-12-21 00:32] LABS: BILIRUBIN,URINE Negative (NEGATIVE); COLOR,URINE YELLOW (YELLOW); LEUKOCYTE ESTERASE ,URINE Negative (NEGATIVE); NITRITE, URINE Negative (NEGATIVE); PH,URINE 5.5 (5.0-8.0); PROTEIN,URINE 100 mg/dl (NEGATIVE); UGLUCOSE Negative (NEGATIVE); UROBILINOGEN,URINE 0.2 EU/dL (0.2)
[2020-12-21 00:33] LABS: BASOPHILS % (AUTO) 0.6 % (0.0-2.0); EOSINOPHILS % (AUTO) 0.2 % (0.0-6.0); HEMATOCRIT 46 % (39-51); HEMOGLOBIN 14.5 g/dL (13.5-17.5); LYMPHOCYTES # (AUTO) 1.8 K/uL (0.8-4.8); MEAN CORPUSCULAR HGB CONC 32 g/dl (31.0-36.0); MEAN CORPUSCULAR VOLUME 91 fL (80-96); MONOCYTES # (AUTO) 0.8 K/uL (0.1-1.30); MONOCYTES % (AUTO) 10.6 % (2.0-12.0); NEUTROPHILS # (AUTO) 5.1 K/uL (1.8-8.9); NEUTROPHILS % (AUTO) 65.6 % (43.0-81.0); PLATELET COUNT (AUTO) 118 K/uL (150-450); RED BLOOD CELL COUNT(AUTO) 5.01 MIL/uL (4.5-6.0); WHITE BLOOD COUNT (AUTO) 7.7 K/uL (4.3-11.0)
[2020-12-21] MEDS ORDERED: VANCOMYCIN 1 GM VIAL ONE (00:43)
[2020-12-21] MEDS ORDERED: PIPERACILLIN /TAZOBACTAM 3.375 G VIAL IV ONE (00:43)
[2020-12-21 01:12] LABS: ALANINE AMINOTRANSFERASE 86 U/L (12-78); ALBUMIN 3.4 g/dL (3.4-5.0); ALKALINE PHOSPHATASE 86 U/L (46-116); ASPARTATE AMINOTRANSFERASE 29 U/L (15-37); BILIRUBIN,DIRECT 0.1 mg/dL (0.0-0.2); BILIRUBIN,TOTAL 0.7 mg/dL (0.2-1.0); CARBON DIOXIDE 32 mmol/L (21-32); CREATININE 1.6 mg/dL (0.6-1.3); GLUCOSE 162 mg/dL (74-106); TOTAL PROTEIN, SERUM 8.4 g/dL (6.4-8.2); UREA NITROGEN, BLOOD 40 mg/dL (7-18)
[2020-12-21 01:13] LABS: CHLORIDE 127 mmol/L (98-107)
[2020-12-21 01:15] LABS: SODIUM SERUM 168 mmol/L (136-145)
--- NOTE | 2020-12-21 01:15 | NUR ---
per lab sodium 168, chloride 127, lactic acid 3.1
[2020-12-21 01:19] LABS: BACTERIA,URINE None seen /HPF (None Seen); MUCUS,URINE Few /LPF (None Seen); SQUAMOUS EPITHELIAL CELL,UR Few /HPF (None Seen)
[2020-12-21 01:22] LABS: ABG BASE EXCESS -0.4 mmol/L; ABG OXYGEN SATURATION 99.1 % (92.0-98.5); ABG PCO2 40.2 mmHg (35.0-45.0); ABG PH 7.399 (7.350-7.450); ABG PO2 294.9 mmHg (75.0-100.0); AaDO2 377.9 mmHg; COHb 0.3 % (0.5-1.5); MetHb 0.4 % (0.0-1.5); O2Hb 98.4 % (94.0-97.0); SITE, ABG Left Radial; VENT MODE, BG AC 16 500 100% +5
[2020-12-21 01:42] LABS: BAND % (MANUAL) 14 % (0.0-5.0); BASOPHILS % (MANUAL) 0 % (0.0-2.0); EOSINOPHILS % (MANUAL) 1 % (0-4); LYMPHOCYTES % (MANUAL) 27 % (16-48); MONOCYTES % (MANUAL) 8 % (0-11.0); NEUTROPHILS % (MANUAL) 50 (42-76)
[2020-12-21] MEDS ORDERED: FAMO20TA8 GT (01:54)
[2020-12-21] MEDS ORDERED: HYDR-4075 PO (01:54)
[2020-12-21] MEDS ORDERED: POTA20TA83 GT (01:54)
[2020-12-21] MEDS ORDERED: SENN-261 GT (01:54)
--- NOTE | 2020-12-21 01:58 | NUR ---
REPORT GIVEN TO NAGA RUIZ FOR SEAN.
[2020-12-21] MEDS: PROPOFOL 100 ML IV PRN ×5 (02:20→23:47)
--- NOTE | 2020-12-21 02:20 | NUR ---
TRANSITION COACH RCD PT FROM ER ON PROPOFOL @ 25 MCG/KG/MIN WELL BLSW RESTRAINTS. PT WITH DIAZ CATHETER DRAINING YELLOW URINE. SKIN INTACT.
[2020-12-21] MEDS ORDERED: IV D5W 1,000 ML IV PRN (02:30)
[2020-12-21] MEDS ORDERED: NOREPINEPHRINE 8MG/250ML RTU 250 ML IV ONE (04:40)
[2020-12-21] MEDS: NOREPINEPHRINE 8 MG in IV NS 0.9% 242 ML IV PRN (04:44)
--- NOTE | 2020-12-21 06:00 | NUR ---
ELECTRICAL CAD TECHNICIAN PT ADEQUATELY SEDATED PROPOFOL DECREASED TO 20 MCG/KG/MIN PER PROTOCOL
--- NOTE | 2020-12-21 06:30 | NUR ---
DIRECTOR OF TEACHER EDUCATION PT ADEQUATELY SEDATED PROPOFOL DECREASED TO 15 MCG/KG/MIN PER PROTOCOL
--- NOTE | 2020-12-21 07:52 | NUR ---
RT Pt received orally intubated on mechanical ventilation with noted settings. Vent is plugged into red outlet with BVM by bedside. No SOB or respiratory distress noted. Plan is to continue with current respiratory care orders. Addendum: 12/21/20 at 1710 by SHOLA BATES RT Amended: Links added.
--- NOTE | 2020-12-21 08:00 | NUR ---
RN NOTES SEEN PATIENT TELEHEALTH VIA HOSPITALIST Dr HONEYCUTT, NO DVT PUMP ON PATIENT PER MD ORDER, CONTINUED HYDRATION D5W@75ML/HR BECAUSE OF NA-160. PATIENT ETT/MECHANICAL VENT, FIO2-50, TV-450,PEEP-5. WAS MILD AGITATED TITRATED DIPRIVAN 20MCG/KG/HR.NO SEDATION VACATION BECAUSE OF INCREASED SEDATION. PER Dr STRAUSS. GT- CLAMPED, KEEP HOB ELEVATED FOR ASPIRATION PRECAUTION. ASSIST TURN AND REPOSTION Q 2 HR. DIAZ DRAINING VIA GRAVITY. WILL FOLLOW UP.
[2020-12-21] MEDS: ENOXAPARIN SODIUM 30 MG/0.3 ML DISP.SYRIN SQ SCH (09:10)
[2020-12-21] MEDS ORDERED: SUCCINYLCHOLINE CHLORIDE 20 MG/ML VIAL IJ ONE (09:11)
[2020-12-21 10:54] LABS: CALCIUM, SERUM 8.7 mg/dL (8.5-10.1); CREATININE 1.4 mg/dL (0.6-1.3); POTASSIUM 3.2 mmol/L (3.5-5.1)
[2020-12-21] MEDS: POTASSIUM CL. PREMIX PERIPHER. 50 ML IV SCH ×4 (11:59→15:00)
--- NOTE | 2020-12-21 11:59 | NUR ---
RN NOTES STARTED KCL INFUSION AT THIS TIME PER LEVEL OF 3.2 MEQ ON RIGHT EJV INTACT. ALSO GET HOSPITALIST ORDER LIPITOR 10MG CONTINUED HS VIA GT. ASSIST TURN AND REPOSTION Q 2 HR. WILL MONITORING.
--- NOTE | 2020-12-21 15:00 | NUR ---
RN NOTES PATIENT MILD AGITATED TITRATED DIPRIVAN 25MCG/KG/HR, ASSIST TURN A D REPOSITION Q 2 HR.
[2020-12-21] MEDS: Potassium Chloride 20 MEQ in IV D5W 1,000 ML IV SCH (17:32)
--- NOTE | 2020-12-21 18:27 | NUR ---
RN NOTES PM CARE DONE, SUCTION, DUE MEDICATION ADMINISTERED. INFUSING D5W WITH 20MEQ OF KCL @ 75 ML/HR, AND DIPRIVAN 25MCG/KG/HR ON RIGHT HAND INTACT. ASSIST TURN AND REPOSTION Q 2 HR. GT CLAMPED. DIAZ DRAINING VIA GRAVITY RADISH OUTPUT. RECHECKED CIRCULATION OF BILATERAL RESTRAIN. ENDORSED ONCOMING NURSE SEAN.
--- NOTE | 2020-12-21 19:45 | NUR ---
ICU/MINING ENGINEERING TECHNOLOGIST RECEIVED REPORT FROM DAY NURSE. SEE FLOWSHEET FOR ASSESSMENT. THE IV'S AND SEDATION IS ADDRESSED ON THE IV SPREAD SHEET ALONG WITH TITRATIONS.THIS PT IS TOLERATED THE VENT SETTINGS WITH SATURATION AT 100%. PT WAS TURNED AND REPOSITIONED FOR COMFORT AND CARE. NO ACUTE DISTRESS SEEN AT THIS TIME WILL CONTINUE MONITOR THIS PT
[2020-12-21] MEDS: ATORVASTATIN 10 MG TABLET GT SCH (21:49)
--- NOTE | 2020-12-21 22:15 | NUR ---
ICU/ASSEMBLER TRACTOR PT WAS GIVEN ORAL CARE, ALONG WITH PM CARE AT THIS TIME. PT TOLERATED THIS WELL, PT REMAINS ON CURRENT VENT SETTINGS WITH SATURATION AT 100%. PT WAS TURNED AND REPOSITIONED FOR COMFORT AND CARE. WILL CONTINUE TO MONITOR THIS PT. NO ACUTE DISTRESS SEEN AT THIS TIME.
--- NOTE | 2020-12-21 23:24 | NUR ---
ICU/BINDING END STITCHER COVID NEGATIVE, PER LAB 12/21/20 PER MATILDA.
[2020-12-21] MEDS: CEFTRIAXONE 1 G in IV D5W 50 ML IV SCH (23:46)
[2020-12-22] VITALS (41 sets, daily range): BP systolic 59–154; BP diastolic 34–118
--- NOTE | 2020-12-22 01:36 | NUR ---
PARTNER MANAGEMENT CONSULTANT. LAB CALLED FOR BLOOD CULTURE PRELIMINARY RESULT IS GRAM POSITIVE COCCI IN CLUSTERS. PAGED MD HONEYCUTT. WAITING FOR CALL BACK.
--- NOTE | 2020-12-22 02:40 | NUR ---
ICU/BEAMER HELPER PT WAS GIVEN ORAL CARE, ALONG WITH PM CARE AT THIS TIME. PT TOLERATED THIS WELL, PT REMAINS ON CURRENT VENT SETTINGS WITH SATURATION AT 100%. PT WAS TURNED AND REPOSITIONED FOR COMFORT AND CARE. WILL CONTINUE TO MONITOR THIS PT. NO ACUTE DISTRESS SEEN AT THIS TIME.
[2020-12-22 04:36] LABS: BASOPHILS % (AUTO) 0.6 % (0.0-2.0); HEMATOCRIT 38 % (39-51); HEMOGLOBIN 12.3 g/dL (13.5-17.5); LYMPHOCYTES # (AUTO) 1.6 K/uL (0.8-4.8); LYMPHOCYTES % (AUTO) 23.6 % (20.0-44.0); MEAN CORPUSCULAR HGB CONC 32 g/dl (31.0-36.0); MEAN CORPUSCULAR VOLUME 90 fL (80-96); MONOCYTES # (AUTO) 0.6 K/uL (0.1-1.30); MONOCYTES % (AUTO) 8.4 % (2.0-12.0); NEUTROPHILS # (AUTO) 4.3 K/uL (1.8-8.9); NEUTROPHILS % (AUTO) 63.4 % (43.0-81.0); RED BLOOD CELL COUNT(AUTO) 4.25 MIL/uL (4.5-6.0); WHITE BLOOD COUNT (AUTO) 6.8 K/uL (4.3-11.0)
[2020-12-22 04:46] LABS: MAGNESIUM 2.8 mg/dL (1.8-2.4); PHOSPHORUS 2.3 mg/dL (2.5-4.9); POTASSIUM 3.6 mmol/L (3.5-5.1)
[2020-12-22 04:52] LABS: CALCIUM, SERUM 8.7 mg/dL (8.5-10.1)
[2020-12-22 05:48] LABS: PLATELET COUNT (AUTO) 112 K/uL (150-450)
[2020-12-22 05:52] LABS: EOSINOPHILS % (MANUAL) 4 % (0-4); LYMPHOCYTES % (MANUAL) 22 % (16-48); MONOCYTES % (MANUAL) 7 % (0-11.0); NEUTROPHILS % (MANUAL) 67 (42-76)
[2020-12-22] MEDS: PROPOFOL 100 ML IV PRN ×2 (06:03→19:16)
--- NOTE | 2020-12-22 07:10 | NUR ---
ICU NOTES RECEIVED IN BED, INTUBATED AND SEDATED, VENT SETTING AC 16, TV 450, FIO2 50%, PEEP 5. NO SIGNS OF DISTRESS NOTED AT THIS TIME. ON TELE MONITOR WITH CURRENT READING OF SR WITH HR OF 80'S. IV ACCESS RIGHT HAND #20 AND RIGHT EJ #18, PROPOFOL @ 25 MCG/KG/MIN AND D52 +20 MEQ KCL @75ML/HR. NOTED WITH FC DRAINING FREELY VIA GRAVITY WITH CLEAR YELLOW URINE. NOTED WITH BILATERAL SOFT WRIST RESTRAINT, CIRCULATION CHECKED, SAFETY MEASURES IN PLACE, BED IN LOWEST LOCKED POSITION WITH SIDE RAILS UP X2, CALL LIGHT WITHIN EASY REACH, WILL CONTINUE TO MONITOR.
[2020-12-22] MEDS: Potassium Chloride 20 MEQ in IV D5W 1,000 ML IV SCH (07:33)
[2020-12-22] MEDS: ENOXAPARIN SODIUM 30 MG/0.3 ML DISP.SYRIN SQ SCH (08:08)
--- NOTE | 2020-12-22 10:00 | NUR ---
BPM ANALYST NOTES Propofol on hold, per Dr. Guerrier to hold sedation and resume if patient is in distress. Will continue to monitor.
[2020-12-22] MEDS: IV D5W 1,000 ML IV PRN ×2 (10:26→23:58)
[2020-12-22] MEDS: POTASSIUM PHOSPHATE MM 7.5 MMOL in IV NS 0.9% 100 ML IV SCH ×2 (10:58→13:47)
--- NOTE | 2020-12-22 18:57 | NUR ---
LASTEX THREAD WINDER Notes Patient in Bed, Intubated and tolerating current vent setting, no signs of distress noted throughout the shift, follow simple commands/ lethargic, noted with MIGUELANGEL Midline, IV fluids of D5W running @ 75 ml/hr, Noted with bilateral soft wrist restraint, circulation checked, FC in place draining freely with clear yellow urine, safety measures maintained, will endorse to date night caregiver nurse for SEAN.
--- NOTE | 2020-12-22 19:10 | NUR ---
ICU/MERCHANDISE MANAGER RECEIVED REPORT FROM DAY NURSE. SEE FLOWSHEET FOR ASSESSMENT. THE IV'S AND SEDATION IS ADDRESSED ON THE IV SPREAD SHEET ALONG WITH TITRATIONS.THIS PT IS TOLERATING THE VENT SETTINGS WITH SATURATION AT 100%. PT WAS TURNED AND REPOSITIONED FOR COMFORT AND CARE. NO ACUTE DISTRESS SEEN AT THIS TIME WILL CONTINUE MONITOR THIS PT
--- NOTE | 2020-12-22 19:20 | NUR ---
FLOORWALKER NOTES started on propofol @ 5mcg/kg/min due to mild agitation and Increased RR. will titrate per protocol, endorse to lumber checker nurse.
--- NOTE | 2020-12-22 19:25 | NUR ---
ICU/ASSOCIATE PRINCIPAL WHILE GETTING REPORT FROM DAY NURSE PT STARTED TO GET VERY AGITATED ALONG WITH THRASHING HEAD FROM SIDE TO SIDE. DAY RN STATED SEDATION A 5MCG OF DIPRIVAN. WILL CONTINUE TO MONITOR THIS PT.
--- NOTE | 2020-12-22 20:20 | NUR ---
ICU/ELECTROLESS PLATER NIGHT RT RAY CHANGED THE FIO2 DOWN TO 40% WHERE IT WAS BEING DOCUMENTED. WILL MONITOR THIS PT CLOSELY FOR HIS SATURATION.
--- NOTE | 2020-12-22 21:30 | NUR ---
ICU/LAPIDARY APPRENTICE NIGHT RESERVATION AGENT NURSE MADE AWARE THAT PT HAS BEEN THRASHING AROUND, SEDATION OF DIPRIVAN HAS BEEN INCREASED PER PROTOCAL. SEE FLOWSHEET FOR TITRATIONS. WILL CONTINUE TO MONITOR THIS PT CLOSELY FOR ANY CHANGES.
[2020-12-22] MEDS: ATORVASTATIN 10 MG TABLET GT SCH (22:05)
--- NOTE | 2020-12-22 22:10 | NUR ---
ICU/PAPER BAG PRESS OPERATOR CHARGE NURSE MADE AWARE THAT PT'S BLOOD PRESSURE WAS LOW THROUGH A FEW CYCLES. CHARGE NURSE STARTED LEVO PER HOSPITAL PROTOCAL. WILL CONTINUE TO MONITOR PT AND HIS SBP. SEE IV SPREAD SHEET FOR TITRATIONS TO THE LEVO.
[2020-12-22] MEDS: NOREPINEPHRINE 8 MG in IV NS 0.9% 242 ML IV PRN (22:31)
--- NOTE | 2020-12-22 23:39 | NUR ---
ICU/JAVA DEVELOPER ANALYST NIGHT PAST DUE ACCOUNTS CLERK NURSE MADE AWARE THAT PT BLOOD PRESSURE HAD BEEN STABLE WHILE ON LEVO. THE LEVO HAS BEEN TITRATED DOWN PER HOSPITAL PROTOCAL, SEE IV FLOWSHEET FOR TITRATION DOWN ON THE LEVO. WILL CONTINUE TO MONITOR THIS PT CLOSELY FOR ANY CHANGES.
[2020-12-23] VITALS (56 sets, daily range): BP systolic 77–164; BP diastolic 50–90
--- NOTE | 2020-12-23 00:30 | NUR ---
ICU/FLY FRAME TENDER PT WAS TURNED AND REPOSITIONED FOR COMFORT AND CARE. WILL CONTINUE TO MONITOR THIS PT. NO ACUTE DISTRESS SEEN AT THIS TIME.
[2020-12-23] MEDS: PROPOFOL 100 ML IV PRN (01:34)
--- NOTE | 2020-12-23 02:45 | NUR ---
ICU/SHEET MUSIC SALESPERSON PT WAS GIVEN ORAL CARE, ALONG WITH AM CARE AT THIS TIME. PT TOLERATED THIS WELL, PT REMAINS ON CURRENT VENT SETTINGS WITH SATURATION AT 100%. PT WAS TURNED AND REPOSITIONED FOR COMFORT AND CARE. WILL CONTINUE TO MONITOR THIS PT. NO ACUTE DISTRESS SEEN AT THIS TIME.
--- NOTE | 2020-12-23 03:55 | NUR ---
ICU/COUNTER HELP AM LABS AND CXR, AWAIT FORM ANY ABNORMAL LABS THIS MORNING.
[2020-12-23 04:37] LABS: CALCIUM, SERUM 8.5 mg/dL (8.5-10.1); CREATININE 0.9 mg/dL (0.6-1.3); PHOSPHORUS 2.3 mg/dL (2.5-4.9); POTASSIUM 2.9 mmol/L (3.5-5.1)
--- NOTE | 2020-12-23 06:49 | NUR ---
ICU/FARMER TREE FRUIT AND NUT CROPS WATER AND SEWER SYSTEMS SUPERINTENDENT NURSE CONTINUES TO TITRATE DOWN THE LEVO AND SEDATION SO THAT PT IS READY FOR SIMV TODAY. AT THIS TIME PT WAS TURNED AND REPOSTIONED FOR COMFORT AND CARE.
--- NOTE | 2020-12-23 07:15 | NUR ---
ICU NOTES RECEIVED IN BED, INTUBATED AND SEDATED, VENT SETTING AC 16, TV 450, FIO2 40%, PEEP 5. NO SIGNS OF DISTRESS NOTED AT THIS TIME. ON TELE MONITOR WITH CURRENT READING OF SR WITH HR OF 80'S. IV ACCESS RIGHT HAND #20, RIGHT EJ #18, AND MIGUELANGEL MIDLINE WITH PROPOFOL @ 10 MCG/KG/MIN AND D5W @75ML/HR, LEVO @ 0.02 MG/KG/MIN. NOTED WITH FC DRAINING FREELY VIA GRAVITY WITH CLEAR YELLOW URINE. NOTED WITH BILATERAL SOFT WRIST RESTRAINT, CIRCULATION CHECKED, SAFETY MEASURES IN PLACE, BED IN LOWEST LOCKED POSITION WITH SIDE RAILS UP X2, CALL LIGHT WITHIN EASY REACH, WILL CONTINUE TO MONITOR.
[2020-12-23] MEDS: ENOXAPARIN SODIUM 30 MG/0.3 ML DISP.SYRIN SQ SCH (08:21)
[2020-12-23 09:22] LABS: ABG BASE EXCESS -0.4 mmol/L; ABG OXYGEN SATURATION 95.7 % (92.0-98.5); ABG PCO2 36.3 mmHg (35.0-45.0); AaDO2 163.5 mmHg; COHb 0.3 % (0.5-1.5); MetHb 0.1 % (0.0-1.5); O2Hb 95.3 % (94.0-97.0); SITE, ABG Right Radial; VENT MODE, BG SIMV 4 PS 15 40%
[2020-12-23] MEDS: Potassium Chloride 20 MEQ in IV D5W 1,000 ML IV PRN ×2 (09:47→22:52)
[2020-12-23] MEDS: POTASSIUM CL. PREMIX PERIPHER. 50 ML IV SCH ×3 (10:00→12:08)
--- NOTE | 2020-12-23 10:00 | NUR ---
SHALLOT CLEANER NOTES SPOKE TO DR. HONEYCUTT, ORDERS TO START TF OF GLUCERNA 1.2 TO RUN @ 40ML/HR, CHANGE IVF TO D5W +20 KCL TI RUN 75ML/HR, CHANGED 30 MG LOVENOX SQ TO 40 MG LOVENOX SQ TO START IN AM. ORDERS MADE AND CARRIED OUT WILL CONTINUE TO MONITOR.
[2020-12-23] MEDS: GLUCERNA 1.2 1,000 ML BOTTLE NG PRN (10:17)
[2020-12-23] MEDS ORDERED: NEUTRA PHOS 1 POWD.PACKET NG ONE (12:30)
--- NOTE | 2020-12-23 18:33 | NUR ---
ICU NOTES PATIENT IN BED, INTUBATED VENT SETTING SIMV WITH RATE OF 4, FIO2 40%, PEEP 5. NO SIGNS OF DISTRESS NOTED, TOLERATED WELL. ON TELE MONITOR WITH CURRENT READING OF SR WITH HR OF 80'S. IV ACCESS RIGHT HAND #20, RIGHT EJ #18, AND MIGUELANGEL MIDLINE WITH D5W +20 KCL @75ML/HR. NOTED WITH FC DRAINING FREELY VIA GRAVITY WITH CLEAR YELLOW URINE. NOTED WITH BILATERAL SOFT WRIST RESTRAINT, CIRCULATION CHECKED, SAFETY MEASURES MAINTAINED, BED IN LOWEST LOCKED POSITION WITH SIDE RAILS UP X2, CALL LIGHT WITHIN EASY REACH, WILL ENDORSE TO STRAP BUCKLER NURSE FOR SEAN.
--- NOTE | 2020-12-23 19:15 | NUR ---
ICU/REVIEW COORDINATOR RECEIVED REPORT FROM DAY NURSE. SEE FLOWSHEET FOR ASSESSMENT. THERE'S NO SEDATION OR PRESSOR ON THIS PT TO ADDRESS ON THE IV SPREAD SHEET.THIS PT IS TOLERATING THE VENT SETTINGS OF SIMV WITH SATURATION AT 97-99%. PT WAS TURNED AND REPOSITIONED FOR COMFORT AND CARE. NO ACUTE DISTRESS SEEN AT THIS TIME WILL CONTINUE MONITOR THIS PT
--- NOTE | 2020-12-23 20:30 | NUR ---
ICU/COMPUTER FORWARDING SYSTEM MARKUP CLERK PT APPEARED TO HAVE SOME DISTRESS CALLED DR HONEYCUTT FOR ATIVAN, DUE TO THE FACT PT IS ORALLY INTUBATED WITH NO SEDATION ON SIMV MODE. DR HONEYCUTT SAID NO JUST PUT DIPRIVAN BACK. HOWEVER DR STRAUSS DOESN'T WANT PT TO HAVE SEDATION DUE TO POSSIBLE EXTUBATION 12/24/20.
--- NOTE | 2020-12-23 20:37 | NUR ---
Patient intubated 7.5 ett secured at 25cm at the lip on SIMV mode. Patient is awake. Sx'd large amt of thick yellow secretions. Vent alarms set and audible. Ambu bag at bedside. Ett cuff checked. Vent plugged into red outlet. Continue to monitor. Addendum: 12/23/20 at 2039 by MARBELLA CHANG RT Amended: Links added.
--- NOTE | 2020-12-23 22:00 | NUR ---
ICU/BLOCK INSPECTOR PT WAS GIVEN ORAL CARE, ALONG WITH PM CARE AT THIS TIME. PT TOLERATED THIS WELL, PT REMAINS ON CURRENT VENT SETTINGS WITH SATURATION AT 100%. PT WAS TURNED AND REPOSITIONED FOR COMFORT AND CARE. WILL CONTINUE TO MONITOR THIS PT. NO ACUTE DISTRESS SEEN AT THIS TIME.
[2020-12-23] MEDS: ATORVASTATIN 10 MG TABLET GT SCH (22:48)
[2020-12-23] MEDS: CEFTRIAXONE 1 G in IV D5W 50 ML IV SCH ×2 (23:49)
[2020-12-24] VITALS (35 sets, daily range): BP systolic 88–151; BP diastolic 55–89
--- NOTE | 2020-12-24 | NUR ---
ICU/CRAB BACKER PT WAS TURNED AND REPOSITIONED FOR COMFORT AND CARE. WILL CONTINUE TO MONITOR THIS PT. NO ACUTE DISTRESS SEEN AT THIS TIME.
--- NOTE | 2020-12-24 02:30 | NUR ---
ICU/SCREW CUTTER PT WAS GIVEN ORAL CARE, ALONG WITH AM CARE AT THIS TIME. PT TOLERATED THIS WELL, PT REMAINS ON CURRENT VENT SETTINGS WITH SATURATION AT 100%. PT WAS TURNED AND REPOSITIONED FOR COMFORT AND CARE. WILL CONTINUE TO MONITOR THIS PT. NO ACUTE DISTRESS SEEN AT THIS TIME.
--- NOTE | 2020-12-24 04:00 | NUR ---
ICU/BOTTOM CRANE OPERATOR AM LABS AND CXR, AWAIT FORM ANY ABNORMAL LABS THIS MORNING.
[2020-12-24 04:49] LABS: CREATININE 0.9 mg/dL (0.6-1.3); PHOSPHORUS 3.3 mg/dL (2.5-4.9); POTASSIUM 3.6 mmol/L (3.5-5.1)
[2020-12-24] MEDS: GLUCERNA 1.2 1,000 ML BOTTLE NG PRN (06:55)
--- NOTE | 2020-12-24 07:30 | NUR ---
SPECIAL DUTY NURSE OPENING NOTES Patient is alert and oriented. Patient is breathing even and unlabored on mechanical ventilator with SIMV rate of 4 and PS of 15. Trach ETT 7.5/25 WITH TV of 450 Fi 02 of 40% and peep of 5. Patient is tolerating well and 02 saturation of 98%. G tube feeding running well at 40 cc/hour. HOB kept elevated. Right upper arm midline noted with D5 W + 20 KCL at 75 cc/hour. Right EJ noted with 18 gauze saline lock. Vanessa cath noted with clear yellow urine. Call light with in reach. Will continue to monitor.
--- NOTE | 2020-12-24 09:47 | NUR ---
RT SWITCHED PATIENT TO COOL AEROSOL 35%, DEVORAH WELL.
[2020-12-24] MEDS: ENOXAPARIN SODIUM 40 MG/0.4 ML DISP.SYRIN SQ SCH (09:49)
--- NOTE | 2020-12-24 10:44 | NUR ---
pt extubated post cool aerosol trial md at bedside zero distress noted. large amounts of sputum pt able to clear airway. spoke with Dr Montano no abg at this time.
--- NOTE | 2020-12-24 10:48 | NUR ---
RN NOTES Patient extubated per MD orders by RT. 02 saturation noted >95%. Will monitor on 02 via n.c at 4 lpm. MD at bedside post extubation and assessed the patient. HOB kept elevated. Patient monitored closely for any s/sx of respiratory distress.
[2020-12-24] MEDS: Potassium Chloride 20 MEQ in IV D5W 1,000 ML IV PRN (13:07)
[2020-12-24] MEDS ORDERED: FUROSEMIDE 20 MG/2 ML VIAL IV ONE (17:00)
--- NOTE | 2020-12-24 19:24 | NUR ---
SOFTWARE QUALITY ASSURANCE ANALYST OPENING NOTES Patient is alert and responsive to stimuli. Patient is breathing even and unlabored on 4 liters 02 via n/c with o2 sat of 98%. Patient noted with secretion from oropharygeal suction with amount of 400 cc. MD Lee did tele health visit and ordered lasix 20 mg iv once. Md aware of patient's extubation and current excessive secretions. HOB kept elevated. Right upper arm midline noted with D5 W + 20 KCL at 75 cc/hour. Vanessa cath noted with clear yellow urine of 500 cc output.. Call light with in reach. Will continue to monitor. Addendum: 12/24/20 at 1927 by SANDEEP CAMP RN CORRECTION: RN CLOSING NOTES
--- NOTE | 2020-12-24 19:26 | NUR ---
RN NOTE PATIENT AWAKE AND RESPONSIVE. ON O2 4L VIA NASAL CANNULA, O2 SAT 98%. NO SIGNS OF RESPIRATORY DISTRESS. WITH G-TUBE RUNNING GLUCERNA 40ML, NO RESIDUAL NOTED. HEAD OF BED ELEVATED. DIAZ CATH PATENT AND INTACT, DRAINING YELLOW URINE TO GRAVITY. IV ACCESS ON RIGHT EJ #18 AND MIGUELANGEL MIDLINE RUNNING D5W 20 KCL @ 75ML/HR. BED LOCKED AND IN LOWEST POSITION. CALL LIGHT WITHIN REACH. ALL NEEDS ANTICIPATED.
[2020-12-24] MEDS: ATORVASTATIN 10 MG TABLET GT SCH (21:45)
[2020-12-24] MEDS: CEFTRIAXONE 1 G in IV D5W 50 ML IV SCH (23:41)
[2020-12-25] VITALS (25 sets, daily range): BP systolic 92–159; BP diastolic 57–99
[2020-12-25] MEDS: GLUCERNA 1.2 1,000 ML BOTTLE NG PRN (02:00)
--- NOTE | 2020-12-25 06:00 | NUR ---
PATIENT O2 SATURATION 88% ON 4L VIA NASAL CANNULA AND HEAD OF BED ELEVATED, MIKE ALBERT AT BEDSIDE. SUCTION DONE. O2 SAT STILL NOTED 89%. PLACED PATIENT ON 6L VIA SIMPLE MASK, O2 SAT >94%. WILL CONTINUE TO MONITOR.
--- NOTE | 2020-12-25 06:40 | NUR ---
RN NOTE PATIENT RESTING IN BED. ON O2 6L VIA SIMPLE MASK, O2 SAT 97%. NO SIGNS OF RESPIRATORY DISTRESS. PATIENT ABLE TO CLEAR AIRWAY. G-TUBE RUNNING GLUCERNA 40ML, NO RESIDUAL NOTED. HEAD OF BED ELEVATED. DIAZ CATH PATENT AND INTACT, DRAINING YELLOW URINE TO GRAVITY OUTPUT 750CC. TOLERATED BED BATH, ORAL CARE DONE. PATIENT TURNED AND REPOSITIONED. BED LOCKED AND IN LOWEST POSITION. CALL LIGHT WITHIN REACH. WILL ENDORSE TO AM SHIFT.
--- NOTE | 2020-12-25 07:05 | NUR ---
RN OPENING NOTES RECEIVED PT RESTING IN BED. ON 6L O2 VIA SIMPLE MASK, SATURATING @98%. NO SOB OR ANY S/S OF ACUTE RESPIRATORY DISTRESS. IV ACCESS AT R EJ #18 AND MIGUELANGEL MIDLINE BOTH INTACT, PATENT AND FLUSHED. G-TUBE CHECKED FOR POSITIVE PLACEMENT. RUNNING GLUCERNA @40ML, NO RESIDUAL NOTED. DIAZ CATH IN PLACE, DRAINING YELLOW URINE TO GRAVITY. SAFETY MEASURES IN PLACE. CALL LIGHT WITHIN REACH. HOB ELEVATED. BED LOCKED AND IN LOWEST POSITION WITH SIDE RAILS UP X3. WILL CONTINUE TO MONITOR.
[2020-12-25] MEDS: Potassium Chloride 20 MEQ in IV D5W 1,000 ML IV PRN (07:46)
[2020-12-25] MEDS: ENOXAPARIN SODIUM 40 MG/0.4 ML DISP.SYRIN SQ SCH (09:13)
--- NOTE | 2020-12-25 18:52 | NUR ---
RN CLOSING NOTES NO SIGNIFICANT CHANGES THROUGHOUT THE SHIFT. ON 6L O2 VIA SIMPLE MASK, NO SOB OR ANY RESPIRATORY DISTRESS. ALL DUE MEDS GIVEN. NEEDS ATTENDED. KEPT CLEAN, DRY AND COMFORTABLE. SAFETY MEASURES IN PLACE. WILL ENDORSE TO NIGHT RN FOR SEAN.
--- NOTE | 2020-12-25 19:39 | NUR ---
ADMISSIONS REPRESENTATIVE OPENING NOTES: Rec'd pt in bed, awake, responds to stimuli. On 6LPM via simple mask tolerating well. Right EJ #18 and MIGUELANGEL midline patent and flushed. Dressing c/d/i. GT site patent and flushed w/ Glucerna infusing at 55ml/hr. Vanessa cath in place patent and draining urine via gravity. Safety measures in place. No pain noted at this time. Will continue to monitor.
--- NOTE | 2020-12-25 20:21 | NUR ---
STAR ROUTE MAIL DRIVER NOTE: Pt noted w/ temp of 100.5. Cooling measures in place. Paged Dr. Lee for order for Tylenol. Per Dr. Lee no antipyretics. Noted. Will continue to monitor.
[2020-12-25] MEDS: ATORVASTATIN 10 MG TABLET GT SCH (21:24)
[2020-12-26] VITALS (24 sets, daily range): BP systolic 89–140; BP diastolic 48–81
[2020-12-26] MEDS: CEFTRIAXONE 1 G in IV D5W 50 ML IV SCH (00:22)
[2020-12-26] MEDS: GLUCERNA 1.2 1,000 ML BOTTLE NG PRN (03:46)
--- NOTE | 2020-12-26 07:01 | NUR ---
ROTARY HELPER NOTE: Paged Dr. Lee regarding pt's elevated BNP, awaiting reply. Addendum: 12/26/20 at 12 by NANCY TESFAYE RN Spoke w/ Dr. Lee. NNO at this time. Will endorse to am
--- NOTE | 2020-12-26 07:15 | NUR ---
rn cvicu notes Received pt in bed, awake, responds to stimuli. On 6LPM via simple mask tolerating well with spo2 of 99%. Right EJ #18 and MIGUELANGEL midline patent and flushed. Dressing c/d/i. GT site patent and flushed w/ Glucerna infusing at 55ml/hr with no residuals noted. Vanessa cath in place patent and draining urine via gravity. Safety measures in place. No pain noted at this time. Will continue to monitor.
[2020-12-26] MEDS: ENOXAPARIN SODIUM 40 MG/0.4 ML DISP.SYRIN SQ SCH (08:35)
--- NOTE | 2020-12-26 10:53 | NUR ---
agriculture manager notes seen and evaluated by dr bella , discussed pt has alot of thick to thin clear secretions upon deep suctioning and orally , temp of 100f , on 6lpm simple mask , md aware , o2 titrated down to 5lpm nc , spo2 of 99 % with no distress , will continue to monitor ,
[2020-12-26] MEDS ORDERED: IPRATROPIUM/ALBUTEROL INHALER IH SCH (12:00)
[2020-12-26] MEDS: ALBUTEROL FS 2.5 MG/0.5 ML VIAL.NEB NEB SCH ×2 (14:11→20:03)
[2020-12-26] MEDS: IPRATROPIUM NEB FS 0.5 MG/2.5 ML AMPUL.NEB NEB SCH ×2 (14:11→20:03)
[2020-12-26 16:30] LABS: CALCIUM, SERUM 9.3 mg/dL (8.5-10.1)
--- NOTE | 2020-12-26 17:07 | NUR ---
precision agriculture technician notes notified dr moe regarding bmp results . md aware , continue water flushes as ordered .
--- NOTE | 2020-12-26 19:08 | NUR ---
director of curriculum and instruction notes patient stable at this time , awake, responds to stimuli. On 2lPM via nasal cannula tolerating well with spo2 of 99%. Right EJ #18 and MIGUELANGEL midline patent and flushed. Dressing c/d/i. GT site patent and flushed w/ Glucerna infusing at 55ml/hr with no residuals noted. Vanessa cath in place patent and draining urine via gravity. Safety measures in place. No pain noted at this time. report given to queenie for continuity of care
--- NOTE | 2020-12-26 19:49 | NUR ---
GRINDER SET UP OPERATOR CENTERLESS OPENING NOTES: Rec'd pt in bed, awake, responds to stimuli. On 2LPM via nasal cannula tolerating well. Right EJ #18 and MIGUELANGEL midline patent and flushed. Dressing c/d/i. GT site patent and flushed w/ Glucerna infusing at 55ml/hr. Condom cath in place patent and draining urine via gravity. Safety measures in place. No pain noted at this time. Will continue to monitor.
[2020-12-26] MEDS: ATORVASTATIN 10 MG TABLET GT SCH (21:46)
[2020-12-27] VITALS (24 sets, daily range): BP systolic 99–144; BP diastolic 57–103
[2020-12-27] MEDS: CEFTRIAXONE 1 G in IV D5W 50 ML IV SCH ×2 (00:30→23:44)
[2020-12-27] MEDS: ALBUTEROL FS 2.5 MG/0.5 ML VIAL.NEB NEB SCH ×4 (01:38→20:10)
[2020-12-27] MEDS: IPRATROPIUM NEB FS 0.5 MG/2.5 ML AMPUL.NEB NEB SCH ×4 (01:39→20:10)
[2020-12-27] MEDS: GLUCERNA 1.2 1,000 ML BOTTLE NG PRN (03:43)
[2020-12-27 05:10] LABS: CALCIUM, SERUM 9.7 mg/dL (8.5-10.1); POTASSIUM 3.9 mmol/L (3.5-5.1)
--- NOTE | 2020-12-27 07:30 | NUR ---
OPENING NOTE: REPORT RECEIVED FROM NANCY RUIZ. PT CONTINUES TO HAVE COPIOUS SECRETIONS. PLAN TO REQUEST SCOPOLAMINE PATCH FOR PATIENT. PT ON 2L NC. CONDOM CATH IN PLACE. MIDLINE CLOGGED, ORDER FOR NEW MIDLINE ORDERED. PT CHECKED ON HOURLY AND PRN BY NURSING STAFF.
[2020-12-27] MEDS ORDERED: SCOPOLAMINE PATCH 1 MG/72HR TD SCH ×2 (08:30→09:00)
[2020-12-27] MEDS: ENOXAPARIN SODIUM 40 MG/0.4 ML DISP.SYRIN SQ SCH (11:00)
--- NOTE | 2020-12-27 13:00 | NUR ---
CONDOM CATH REPLACED AT THIS TIME WITHOUT DIFFICULTY
--- NOTE | 2020-12-27 19:05 | NUR ---
END OF SHIFT NOTE: CONDOM CATH REPLACED AGAIN AT THIS TIME, BED CHANGE DONE. TUBE FEEDING INFUSING WITHOUT DIFFICULTY. LEFT MIDLINE INSERTED TO REPLACE RIGHT MIDLINE. NO BM THIS SHIFT. HOSPICE EVAL PER DR HONEYCUTT. PT CHECKED ON HOURLY AND PRN BY NURSING STAFF.
[2020-12-27] MEDS: ATORVASTATIN 10 MG TABLET GT SCH (21:14)
[2020-12-28] VITALS (17 sets, daily range): BP systolic 85–165; BP diastolic 51–119
[2020-12-28] MEDS: ALBUTEROL FS 2.5 MG/0.5 ML VIAL.NEB NEB SCH ×4 (01:33→20:55)
[2020-12-28] MEDS: IPRATROPIUM NEB FS 0.5 MG/2.5 ML AMPUL.NEB NEB SCH ×4 (01:33→20:55)
--- NOTE | 2020-12-28 02:10 | NUR ---
AMBULANCE DRIVER. PT REMAINS ON O2 2L VIA N/C. TOLERATES WELL. PT PRODUCED LARGE AMT. OF THICK WHITISH SECRETIONS. NEEDS FREQUENT DEEP SUCTIONING VSS. AFEBRILE, SCOPE-ST. GT FEEDING GLUCERNA @ 55 MLS/HR. TOLERATES WELL. GT FLUSHED Q 6 HOURS WITH 150 ML H20. CONDOM CATHETER DRAINS SUFFICIENT AMT. OF CLEAR YELLOW URINE. MEDICATED ORDERED. BATH GIVEN, LINEN CHANGED.
[2020-12-28 04:36] LABS: CALCIUM, SERUM 9.7 mg/dL (8.5-10.1); CREATININE 0.9 mg/dL (0.6-1.3); POTASSIUM 3.7 mmol/L (3.5-5.1)
[2020-12-28] MEDS: GLUCERNA 1.2 1,000 ML BOTTLE NG PRN (04:58)
--- NOTE | 2020-12-28 08:00 | NUR ---
RN NOTES RECEIVED PATIENT CONFUSED, AWAKE, ON O2-2KNC. PATIENT NONVERBAL , NO ACUTE RESPIRATORY DISTRESS, BED BOUND, MOUTH CARE DONE, SUCTION PATIENT HAS SMALL AMOUNT OF SECRETION, ADMINISTERED DUE MEDICATION. VSS. NO RESIDUAL. ASSIST TURN AND REPOSTION Q [address] PT CHECKED ON HOURLY AND PRN BY NURSING STAFF.
[2020-12-28] MEDS: ENOXAPARIN SODIUM 40 MG/0.4 ML DISP.SYRIN SQ SCH (09:13)
--- NOTE | 2020-12-28 11:19 | NUR ---
RN NOTES PATIENT STABLE TO TRANSFER TO THE TELE UNIT.
--- NOTE | 2020-12-28 13:36 | NUR ---
LEAN SIX SIGMA BLACK BELT NOTES RECEIVED PT FROM ICU 256, NON VERBAL, DROWSY, APHASIC, UNABLE TO FOLLOW COMMAND, ON 2 L O2 NC SATTING 98-99%, RESPIRATION UNLABORED, SR 96 HR ON MONITOR, NO SIGN SOF ANY PAIN OR DISCOMFORT, PT WITH STIFF LOWER EXTREMITIES AND RIGHT SIDE. RIGHT EF IV ACCESS IN PLACE, FLUSHES WELL, SITE CLEAR. ONGOING GLUCERNA AT 55 ML/HR, O RESIDUAL. CONDOM CATH IN PLACE, 200 ML OUT PUT AT ICU. SAFETY MEASURES IN PLACE, BED LOW LOCKED, SR UP X 2, WILL CONT TO MONITOR.
--- NOTE | 2020-12-28 13:50 | NUR ---
RN NOTE TRANSFERRED PATIENT TO [facility]. PATIENT STABLE . BEDSIDE REPORT GIVEN TO PRIMARY RN. TUBE FEEDING PUMP SET UP AT BEDSIDE AND RESUMED PER PREVIOUS RATE. FISHERIES ENFORCEMENT OFFICER ATTACHED. Addendum: 12/28/20 at 1408 by HOLLY CRUZ RN CORRECTION: TIME SHOULD BE [id number]
--- NOTE | 2020-12-28 18:36 | NUR ---
RN NOTES ALL NEEDS ME AT THIS TIME. TURNED AND REPOSITIONED. TOTAL URINE OUTPUT 750 ML. NO OTHER SIGNIFICANT CHANGE IN CONDITION. STABLE. WILL ENDORSE TO NEXT SHIFT FOR SEAN.
--- NOTE | 2020-12-28 19:10 | NUR ---
RN NOTES: RECEIVED LYING ON BED ON SEMI FOWLERS POSITION, PER ENDORSEMENT PATIENT CAME FROM ICU, EXTUBATED LAST MONDAY, NON VERBAL, RESPONDING WHEN NAME IS CALLED HE IS LOOKING AT YOU MAKING EYE CONTACT,ON O2 AT 2L/MIN VIA NC SPO2-95%,ON PEG TUBE WITH FEEDING OF GLUCERNA 1.2 AT 55 ML/HR ,KEPT HEAD ELEVATED,ON TELE MONITOR SR-82, TO REINSERT CONDOM CATH, IT WAS OUT. --ORIENTED TO UNIT AND STAFF, BED LO AND LOCKED, KEPT CALL LIGHT WITHIN EASY REACH, FALL, ASPIRATION AND SAFETY PRECAUTION OBSERVED. --NEEDS ATTENDED.
[2020-12-28] MEDS: ATORVASTATIN 10 MG TABLET GT SCH (21:12)
--- NOTE | 2020-12-29 00:09 | NUR ---
RN NOTES: AROUND 2200 REQUEST TO RN/CN TO CHANGE HIS ROOM HIS TEMPERATURE WAS 100 BUT AFTER REMOVING THE BLANKET TEMPERATURE IMPROVE TO 98-99. HE WAS MOVE FROM ROOM 120 TO 111-2.
--- NOTE | 2020-12-29 00:11 | NUR ---
RN NOTES: --PASS LARGE AMOUNT OF PEE, BED BATH RENDERED, CLEAN AND CHANGE, CONDOM CATH INSERTED,PEG FEEDING CONTINUE, FLUSHING DONE, NEEDS ATTENDED, --BLE-OFF LOADED. --REPOSITIONING DONE.
[2020-12-29] MEDS: IPRATROPIUM NEB FS 0.5 MG/2.5 ML AMPUL.NEB NEB SCH ×3 (02:20→13:44)
[2020-12-29] MEDS: ALBUTEROL FS 2.5 MG/0.5 ML VIAL.NEB NEB SCH ×3 (02:20→13:44)
[2020-12-29 02:21] VITALS: BP 107/85
--- NOTE | 2020-12-29 02:26 | NUR ---
RN NOTES: SPO2 REMAINED IN 96-98%, NO FLUCTUATION NOTED, BUT PATIENT LOOKS LIKE HAVING SOME SECRETION, RT NOTIFIED AND REQUEST TO GIVE HIS NEBULIZATION, RT RESPONDED IMMEDIATELY.
[2020-12-29] MEDS: GLUCERNA 1.2 1,000 ML BOTTLE NG PRN (03:01)
[2020-12-29 04:00] VITALS: BP 127/86
--- NOTE | 2020-12-29 07:31 | NUR ---
RN NOTES: ASLEEP, AWAKE WHEN HIS NAME IS CALLED, ENDORSED FOR CONTINUITY OF CARE, URINE OUTPUT VIA CONDOM 200ML, ON TELE MONITOR SR-86, FOR POSSIBLE DISCHARGE TODAYS, NO SOB OR SIGN OF RESPIRATORY DISTRESS SPO2-98%.NEEDS ATTENDED.
[2020-12-29 08:00] VITALS: BP 134/72
--- NOTE | 2020-12-29 08:01 | NUR ---
REVIEW RN OPENING NOTES RECEIVED PATIENT IN BED, ASLEEP. NO S/S OF DISTRESS, PATIENT ON OXYGEN THERAPY AT 2LPM VIA NC. NO S/S OF PAIN SUCH FACIAL GRIMACING, GUARDING OR MOANING AT THIS TIME. IV ACCESS AT CELMENCIA; . G-TUBE IN PLACE RUNNING GLUCERNA 1.5 @ 55 ML/HR. CONDOM CATH DRAINING CLEAR YELLOW URINE. SAFETY PRECAUTIONS IN PLACE; BED IN LOW POSITION AND LOCKED, RAILS UP X2, CALL LIGHT WITHIN REACH. WILL CONTINUE TO MONITOR PATIENT.
[2020-12-29] MEDS: ENOXAPARIN SODIUM 40 MG/0.4 ML DISP.SYRIN SQ SCH (09:14)
[2020-12-29 12:02] VITALS: BP 110/67
--- NOTE | 2020-12-29 15:39 | NUR ---
INFRASTRUCTURE ENGINEER NOTES PATIENT DEVELOPED SEIZURE FOR LESS THEN 1 MIN. NOW STABLE. MD NOTIFIED. ORDERS RECEIVED.
[2020-12-29 16:00] VITALS: BP 108/67
[2020-12-29] MEDS ORDERED: LORAZEPAM INJ 2 MG/ML VIAL IVP ONE (16:00)
--- NOTE | 2020-12-29 16:39 | NUR ---
VEHICLE TRIMMER NOTES 1 ML ATIVAN IVP ADMINISTERED PER MD ORDER. WILL CONTINUE TO MONITOR.
--- NOTE | 2020-12-29 18:35 | NUR ---
COMMUNITY RESOURCE OFFICERPANEL COVERER NOTES PATIENT DISCHARGED TO SNF. ALL DISCHARGE PAPERWORK READY AND SIGNED BY 2 RNs. DUE TO PATIENT BEING A/O X0. PATIENT HAD NO BELONGINGS. PER FACILITY PATIENT LEFT WITH IV LINES AND CONDOM CATH. SKIN INTACT. CALLED AND REPORT GIVEN EXECUTIVE SECRETARY. PER MD PATIENT LEFT WITHOUT MEDICATIONS.
== END 2020-12-29 23:50 | disposition hospice, home (50) | DRG 208 ==
LOC: ER 23:42 → ICU 12-21 01:44 → TELE1 12-28 13:34
PROVIDERS: ADMIT Internal Medicine; ATTEND Internal Medicine
PROC: 5A1945Z Respiratory Ventilation, 24-96 Consecutive Hours (ICD-10-PCS; principal; 2020-12-21)
PROC: 0BH18EZ Insertion of Endotracheal Airway into Trachea, Via Natural or Artificial Opening Endoscopic (ICD-10-PCS; 2020-12-21)
PROC: 05H533Z Insertion of Infusion Device into Right Subclavian Vein, Percutaneous Approach (ICD-10-PCS; 2020-12-22)
PROC: B546ZZA Ultrasonography of Right Subclavian Vein, Guidance (ICD-10-PCS; 2020-12-22)
PROC: 05H633Z Insertion of Infusion Device into Left Subclavian Vein, Percutaneous Approach (ICD-10-PCS; 2020-12-27)
PROC: B547ZZA Ultrasonography of Left Subclavian Vein, Guidance (ICD-10-PCS; 2020-12-27)
DX: J69.0 Pneumonitis due to inhalation of food and vomit (principal); G92 Toxic encephalopathy; J96.01 Acute respiratory failure with hypoxia; E87.0 Hyperosmolality and hypernatremia; N17.9 Acute kidney failure, unspecified; G20 Parkinson's disease; E11.9 Type 2 diabetes mellitus without complications; E86.0 Dehydration; Z20.822 Contact with and (suspected) exposure to COVID-19; F29 Unspecified psychosis not due to a substance or known physiological condition; E87.8 Other disorders of electrolyte and fluid balance, not elsewhere classified; E83.39 Other disorders of phosphorus metabolism; D69.6 Thrombocytopenia, unspecified; G40.909 Epilepsy, unspecified, not intractable, without status epilepticus; Z93.1 Gastrostomy status; F02.80 Dementia in other diseases classified elsewhere, unspecified severity, without behavioral disturbance, psychotic disturbance, mood disturbance, and anxiety; I10 Essential (primary) hypertension; E87.6 Hypokalemia; K76.9 Liver disease, unspecified
CPT/HCPCS: 31720; 36410; 36415; 36600; 71045-TC; 80048-TC; 80076-TC; 81001; 83605-TC; 83735-TC; 83880; 84100-TC; 84484-TC; 85025-TC; 85730-TC; 87040-TC; 87070-TC; 87081-TC; 87086-TC; 94002-TC; 94003-TC; 94640-TC; 94668-TC; 94760-TC; 94799-TC; A4349; C9803; G0378; J0330; J0696; J1650; J1940; J2060; J2543; J3370; J3480; J3490; J7030; J7050; J7060; J7070; U0003